=== PATIENT | female | born 1970 | race Caucasian/White ===

== ENCOUNTER 2016-08-21 13:30 | Outpatient (CLI) | payer OTHER | END 2016-08-21 13:31 | disposition home or self-care (01) | DX: F31.81 Bipolar II disorder (principal) ==

== ENCOUNTER 2016-12-24 10:51 | Outpatient (CLI) | payer OTHER | END 2016-12-24 10:52 | disposition home or self-care (01) | DX: N39.0 Urinary tract infection, site not specified (principal) ==

== ENCOUNTER 2017-01-08 08:00 | Outpatient (CLI) | payer OTHER | END 2017-01-08 08:01 | disposition home or self-care (01) | LOC: LAB.R 08:00 | PROVIDERS: ATTEND Family Medicine | DX: N39.0 Urinary tract infection, site not specified (principal) | CPT/HCPCS: 87077; 87086 ==

== ENCOUNTER 2017-01-14 11:58 | Outpatient (CLI) | payer OTHER | END 2017-01-14 11:59 | disposition home or self-care (01) | LOC: LAB 11:58 | PROVIDERS: ATTEND Nurse Practitioner Psychiatric/Mental Health | DX: F39 Unspecified mood [affective] disorder (principal) | CPT/HCPCS: 36415; 80178 ==

== ENCOUNTER 2017-01-15 12:10 | Outpatient (CLI) | payer OTHER | END 2017-01-15 12:11 | disposition home or self-care (01) | DX: N39.0 Urinary tract infection, site not specified (principal) ==

== ENCOUNTER 2017-03-18 01:19 | Emergency (ER) | payer OTHER ==
[2017-03-18] MEDS ORDERED: SODIUM CHLORIDE 0.9% 1,000 ML IV ONE (01:37)
[2017-03-18] MEDS ORDERED: METOCLOPRAMIDE 10 MG/2 ML VIAL IVP STA (01:37)
[2017-03-18] MEDS ORDERED: SODIUM CHLORIDE FLUSH 0.9% 10 ML SYRINGE IVP ONE (01:48)
[2017-03-18] MEDS ORDERED: METOCLOPRAMIDE 10 MG/2 ML VIAL ONE (01:48)
--- NOTE | 2017-03-18 02:27 | XRAY Preliminary Report ---
Exam: XR Abdomen 2 View IMPRESSION: Large stool burden. [facility] SITE ID: [id number]
--- NOTE | 2017-03-18 02:30 | XRAY Report ---
EXAM: ABDOMEN RADIOGRAPHY EXAM DATE: 03/18/2017 02:07 AM. CLINICAL HISTORY: Vomiting, constipation, prior abdominal surgeries. COMPARISON: 01/15/2017, CT 06/07/2014. TECHNIQUE: 2 views. FINDINGS: Lung Bases: Unremarkable. Bowel Gas Pattern: Nonobstructive with large stool burden. Other: No gross free air seen. Previous cholecystectomy. IMPRESSION: Large stool burden. [facility] Referring Provider Line: [phone] SITE ID: [id number]
--- NOTE | 2017-03-18 02:48 | ED Physician Documentation ---
PD HPI NVD - Stated complaint Stated Complaint: VOMITING - Chief complaint Chief Complaint: Abd Pain - History obtained from History obtained from: Patient, Family - History of Present Illness Timing - onset: Chronic Timing - details: Gradual onset, Still present Contributing factors: Sick contact. No: Bad food, Recent antibiotics Similar symptoms before: Work up / diagnostics, Treatment, Follow up Recently seen: Not recently seen - Additonal information Additional information: Patient is a 46 year old female with chronic abdominal problems including ibs with consitpation. Patient states that she has been vomiting for the last 12 hours. patient's reports that she normally has a bowel movement once every few days. Patient states that she had a small bowel movement yesterday. patient's had been sick with a viral syndrome earlier this week. Review of Systems Constitutional: denies: Fever, Chills Eyes: denies: Loss of vision, Decreased vision Ears: denies: Ear pain, Drainage/discharge Nose: denies: Rhinorrhea / runny nose, Congestion Throat: denies: Sore throat Cardiac: denies: Palpitations GI: reports: Abdominal Pain, Nausea, Vomiting, Constipation : denies: Dysuria, Frequency, Hesitancy Musculoskeletal: denies: Neck pain, Back pain Neurologic: denies: Generalized weakness, Focal weakness Immunocompromised: denies: Immunocompromised PD PAST MEDICAL HISTORY - Past Medical History Cardiovascular: High cholesterol, Pulmonary embolism Respiratory: Other Neuro: None Endocrine/Autoimmune: HyPOthyroidism GI: Chronic constipation, Other : Other HEENT: None Psych: Depression, Anxiety, Bipolar disorder Musculoskeletal: Osteoarthritis, Fibromyalgia, Chronic back pain Derm: None Other Past Medical History: Chronic vomiting - Past Surgical History Past Surgical History: Yes General: Colonoscopy - Present Medications Home Medications: Ambulatory Orders Medication Instructions Recorded Confirmed Amitriptyline HCl 150 mg PO HS 03/10/13 03/18/17 Lamotrigine [Lamictal Xr] 200 mg PO DAILY 03/10/13 03/18/17 Levothyroxine [Synthroid] 88 mcg PO QDAC 03/10/13 03/18/17 [place] Carbonate 600 mg PO HS 03/10/13 03/18/17 Morphine ER [Ms Contin] 15 mg PO Q12H 03/10/13 03/18/17 Tizanidine HCl [Zanaflex] 4 mg PO BID 03/10/13 03/18/17 Rivaroxaban [Xarelto] 20 mg PO DAILY 06/21/13 03/18/17 Albuterol [Ventolin Hfa] 1 puffs INH DAILY PRN 10/04/13 03/18/17 Fluticasone/Salmeterol 100/50 1 puffs INH DAILY 10/04/13 03/18/17 [Advair 100 Mcg/50 Mcg] Hyoscyamine [Levsin] 0.125 mg PO DAILY PRN 04/10/15 03/18/17 Lubiprostone [Amitiza] 24 mcg PO DAILY 04/10/15 03/18/17 Omeprazole 20 mg PO DAILY 04/10/15 03/18/17 QUEtiapine [SEROquel] 200 mg PO DAILY 04/10/15 03/18/17 [place] 150 mg PO DAILY 05/13/16 03/18/17 Metoclopramide [Reglan] 10 mg PO Q6H #14 tablet 03/18/17 - Allergies Allergies/Adverse Reactions: Allergies Allergy/AdvReac Type Severity Reaction Status Date / Time Penicillins Allergy Severe Hives Verified 03/18/17 01:31 bromocriptine mesylate * AdvReac Intermediate syncope Verified 03/18/17 01:31 [From Parlodel] lidocaine AdvReac Intermediate vomitting Verified 03/18/17 01:31 metronidazole [From Flagyl] AdvReac Intermediate vomitting Verified 03/18/17 01: 31 Metronidazole HCl * AdvReac Intermediate vomitting Verified 03/18/17 01:31 [From Flagyl] - Social History Does the pt smoke?: No Smoking Status: Never smoker Does the pt drink ETOH?: No Does the pt have substance abuse?: No - Immunizations Immunizations are current?: Yes PD ED PE NORMAL - Vitals Vital signs reviewed: Yes - General General: Alert and oriented X 3, No acute distress - HEENT HEENT: Atraumatic, PERRL - Neck Neck: Supple, no meningeal sign, No JVD - Cardiac Cardiac: RRR, No murmur - Respiratory Respiratory: No respiratory distress - Abdomen Abdomen: Soft, Non distended - Derm Derm: Normal color, Warm and dry, No rash - Extremities Extremities: No deformity, No tenderness to palpate, No edema - Neuro Neuro: Alert and oriented X 3, 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 No: Rebound, Guarding Results - Vitals Vitals: Vital Signs - 24 hr 03/18/17 01:24 Temperature 37.1 C Heart Rate 79 Respiratory 14 Rate Blood Pressure 99/58 L O2 Saturation 98 Oxygen O2 Source Room air - Rads (name of study) abdomen Radiology: Final report received (large stool burden) PD MEDICAL DECISION MAKING - ED course Complexity details: reviewed old records, reviewed results, re-evaluated patient , considered differential, d/w patient, d/w family ED course: Patient was seen and examined at bedside. Patient was treated with fluids, and reglan. Imaging was ordered and showed constipation but no obstruction. Patient had no episodes of vomiting while in the emergency department. Patient required no further work up and was stable for discharge with outpatient follow up. Departure - Departure Disposition: 01 Home, Self Care Clinical Impression: Vomiting Condition: Good Instructions: ED Nausea Vomiting Follow-Up: Sade Larose DO [Primary Care Provider] - Within 1 week Prescriptions: Metoclopramide [Reglan] 10 mg PO Q6H #14 tablet Comments: Your diagnostics showed constipation but no obstruction. You could be fighting a viral gastroenteritis. It is important to stay well hydrated with fluids. You can take the reglan, zofran or phenagran for nausea. You should follow up wiht your pmd if your symptoms persist. You should return to the emergency department at any time for new, worsening or uncontrollable symptoms.
[2017-03-18 03:07] VITALS: BP 98/67
== END 2017-03-18 03:05 | disposition home or self-care (01) ==
LOC: ED 01:19
DX: R11.2 Nausea with vomiting, unspecified (principal); K58.1 Irritable bowel syndrome with constipation; E78.00 Pure hypercholesterolemia, unspecified; Z86.711 Personal history of pulmonary embolism
CPT/HCPCS: 74020; 96361; 96374; 99283; 99284

== ENCOUNTER 2017-04-20 08:00 | Outpatient (CLI) | payer OTHER | END 2017-04-20 08:01 | disposition home or self-care (01) | LOC: LAB.WCP 08:00 | PROVIDERS: ATTEND Family Medicine | DX: R30.0 Dysuria (principal) | CPT/HCPCS: 87086 ==

== ENCOUNTER 2017-07-15 13:15 | Outpatient (CLI) | payer OTHER | END 2017-07-15 13:16 | LOC: LAB.WCP 13:15 | PROVIDERS: ATTEND Family Medicine | DX: N39.0 Urinary tract infection, site not specified (principal) | CPT/HCPCS: 87086 ==

== ENCOUNTER 2018-01-19 10:32 | Outpatient (CLI) | payer OTHER ==
--- NOTE | 2018-01-19 12:15 | Mammography Report ---
BILATERAL MAMMOGRAPHY AND LEFT BREAST ULTRASOUND: 01/19/2018 HISTORY: Left breast pain. TECHNIQUE: Bilateral digital CC and MLO projections with additional magnification views of the left breast. COMPARISON: 09/24/2015, 09/11/2015, 11/11/2011, 10/21/2010 and 09/23/2009. FINDINGS: There are scattered fibroglandular densities. No dominant mass, architectural distortion, skin thickening. On the right, no suspicious calcifications. On the left, there are linear calcifications in the middle third retroareolar breast,, questionably increased in number compared to prior studies. While these are most likely benign, given the history of left breast pain, repeat six month left breast mammogram with magnification views is suggested. LEFT BREAST ULTRASOUND: TECHNIQUE: Real-time scanning of the left breast in the periareolar region in the areas of Pain. FINDINGS: No cystic or solid mass, abnormal fluid collection, dilated duct, or other finding. IMPRESSION: 1. NEGATIVE RIGHT BREAST. BI-RADS CATEGORY 1 - NEGATIVE. 2. PROBABLY BENIGN FINDINGS LEFT BREAST. BI-RADS CATEGORY 3 - PROBABLE BENIGN FINDING. SHORT-TERM FOLLOW UP. 3. SUGGEST FOLLOWUP UNILATERAL LEFT BREAST MAMMOGRAM IN 6 MONTHS WITH MAGNIFICATION VIEWS. STANDARD QUALIFYING STATEMENTS: 1. This examination was reviewed with the aid of Computer-Aided Detection (CAD) . 2. A negative or benign imaging report should not delay biopsy if clinically suspicious findings are present. Consider surgical consultation if warranted. More than 5 % of cancers are not identified by imaging. 3. Dense breasts may obscure an underlying neoplasm. TD: 01/19/2018 11:49 ESME
== END 2018-01-19 10:33 | disposition home or self-care (01) ==
LOC: DI 10:32
PROVIDERS: ATTEND Family Medicine
DX: N64.4 Mastodynia (principal)
CPT/HCPCS: 76642; 77066

== ENCOUNTER 2018-02-18 11:35 | Outpatient (CLI) | payer OTHER ==
[2018-02-18 12:30] LABS: BILIRUBIN,TOTAL 0.5 mg/dL (0.2-1.0); CALCIUM 9.9 mg/dL (8.5-10.3); CREATININE 0.9 mg/dL (0.4-1.0); PHOSPHORUS 3.4 mg/dL (2.5-4.6)
[2018-02-18 14:17] LABS: LITHIUM 0.96 mmol/L
== END 2018-02-18 11:36 | disposition home or self-care (01) ==
LOC: LAB 11:35
PROVIDERS: ATTEND Nurse Practitioner Psychiatric/Mental Health
DX: F41.1 Generalized anxiety disorder (principal); F41.8 Other specified anxiety disorders; F10.10 Alcohol abuse, uncomplicated; F39 Unspecified mood [affective] disorder
CPT/HCPCS: 36415; 80053; 80178; 84100

== ENCOUNTER 2018-03-29 17:25 | Outpatient (CLI) | payer OTHER ==
--- NOTE | 2018-03-30 03:34 | XRAY Report ---
Procedure Date: 03/29/2018 Accession Number: [id number] / [id number] Procedure: XR - Hip w/Pelvis 2-3V LT CPT Code: FULL RESULT: EXAM: LEFT HIP AND PELVIS RADIOGRAPHY EXAM DATE: 03/29/2018 06:11 PM. HISTORY: HIP PAIN,LEFT THIGH PAIN,LEFT. COMPARISONS: None. TECHNIQUE: 1 view of the pelvis and 1 view of the hip. FINDINGS: Bones: Normal. No fracture or bone lesion. Joints: The bilateral hip, pubis symphysis, and sacroiliac joints are preserved. Soft Tissues: Normal. No soft tissue swelling. IMPRESSION: Normal pelvis and hip radiography. [facility]
== END 2018-03-29 17:26 | disposition home or self-care (01) ==
LOC: DI 17:25
PROVIDERS: ATTEND Family Medicine
DX: M25.552 Pain in left hip (principal); M79.652 Pain in left thigh; Z86.711 Personal history of pulmonary embolism
CPT/HCPCS: 36415; 85379

== ENCOUNTER 2018-03-30 21:52 | Outpatient (CLI) | payer OTHER ==
--- NOTE | 2018-03-30 23:14 | Ultrasound Report ---
Procedure Date: 03/30/2018 Accession Number: [id number] / [id number] Procedure: US - Duplex Ext Veins Left CPT Code: FULL RESULT: EXAM: LEFT LOWER EXTREMITY VENOUS ULTRASOUND EXAM DATE: 03/30/2018 10:28 PM. CLINICAL HISTORY: THIGH PAIN, LEFT; HX OF PE. COMPARISON: None. TECHNIQUE: Real-time sonographic vascular imaging was performed by the ring stamper through the lower extremity utilizing both color-flow and Doppler spectral analysis. Multiple environmental marketing representative static images were saved for review. FINDINGS: Common Femoral Vein (CFV): Normal. CFV-GSV Junction: Normal. Profunda Femoral Vein (PFV): Normal. Femoral Vein (FV) Prox: Normal. Femoral Vein (FV) Mid: Normal. Femoral Vein (FV) Dist: Normal. Popliteal Vein: Normal. Posterior Tibial Veins: Normal. Peroneal Veins: Normal. Other: None. IMPRESSION: No evidence for deep venous thrombosis. Results called to Libertad Granger PA-C on 03/30/2018 at 11:10 PM. [facility]
== END 2018-03-30 21:53 | disposition home or self-care (01) ==
LOC: DI 21:52
PROVIDERS: ATTEND Family Medicine
DX: M79.652 Pain in left thigh (principal); Z86.711 Personal history of pulmonary embolism

== ENCOUNTER 2018-09-12 15:16 | Outpatient (CLI) | payer OTHER ==
[2018-09-12 16:33] LABS: ALBUMIN 4.2 g/dL (3.2-5.5); CALCIUM 9.8 mg/dL (8.5-10.3); CREATININE 0.8 mg/dL (0.4-1.0); PHOSPHORUS 3.6 mg/dL (2.5-4.6)
[2018-09-12 17:25] LABS: LITHIUM 0.93 mmol/L
== END 2018-09-12 15:17 | disposition home or self-care (01) ==
LOC: LAB 15:16
PROVIDERS: ATTEND Nurse Practitioner Psychiatric/Mental Health
DX: F39 Unspecified mood [affective] disorder (principal)
CPT/HCPCS: 36415; 80069; 80178

== ENCOUNTER 2018-09-26 14:54 | Emergency (ER) | payer OTHER ==
[2018-09-26 16:32] LABS: BASOPHILS # (AUTO) 0.1 10^3/uL (0.0-0.1); BASOPHILS % (AUTO) 0.7 %; EOSINOPHILS # (AUTO) 0.1 10^3/uL (0.0-0.7); EOSINOPHILS % (AUTO) 1.2 %; HGB - HEMOGLOBIN 12.3 g/dL (12.0-16.0); LYMPHOCYTES # (AUTO) 2.7 10^3/uL (1.5-3.5); LYMPHOCYTES % (AUTO) 32.4 %; MEAN CORPUSCULAR HEMOGLOBIN 31.3 pg (27.0-31.0); MEAN CORPUSCULAR HGB CONC 32.9 g/dL (32.0-36.0); MEAN CORPUSCULAR VOLUME 94.9 fL (81.0-99.0); MEAN PLATELET VOLUME 6.6 fL (7.9-10.8); MONOCYTES # (AUTO) 0.4 10^3/uL (0.0-1.0); MONOCYTES % (AUTO) 4.6 %; NEUTROPHILS # (AUTO) 5.1 10^3/uL (1.5-6.6); NEUTROPHILS % (AUTO) 61.1 %; PLT - PLATELET COUNT 372 10^3/uL (130-450); RED BLOOD COUNT 3.92 10^6/uL (4.20-5.40); RED CELL DISTRIBUTION WIDTH 12.7 % (12.0-15.0); WHITE BLOOD COUNT 8.3 x10^3/uL (4.8-10.8)
[2018-09-26 16:44] LABS: ALBUMIN 4.1 g/dL (3.2-5.5); ALBUMIN/GLOBULIN RATIO 1.1 (1.0-2.2); BILIRUBIN,TOTAL 0.5 mg/dL (0.2-1.0); CALCIUM 9.5 mg/dL (8.5-10.3); CREATININE 0.8 mg/dL (0.4-1.0); MAGNESIUM 2.2 mg/dL (1.7-2.8); TOTAL PROTEIN 7.9 g/dL (6.7-8.2)
[2018-09-26] MEDS ORDERED: KETOROLAC 60 MG/2 ML VIAL IM STA (18:33)
[2018-09-26] MEDS ORDERED: oxyCODONE 5 MG TABLET PO STA (18:33)
[2018-09-26] MEDS ORDERED: DEXAMETHASONE 10 MG/ML VIAL PO STA (18:33)
[2018-09-26] MEDS ORDERED: ACETAMINOPHEN 325 MG TABLET PO STA (18:33)
--- NOTE | 2018-09-26 18:36 | ED Physician Documentation ---
PD HPI LOWER EXT INJURY - Stated complaint Stated Complaint: LEG NUMBNESS - Chief complaint Chief Complaint: Ext Problem - History obtained from History obtained from: Patient - History of Present Illness PD HPI LOW EXT INJURY LOCATION: Right, Left, Thigh, Calf Type of injury: No: Fall, Twist Timing - onset: Yesterday Timing - details: Gradual onset (She had onset yesterday of a feeling of numbness and cold feeling in both medial thighs down to the anterior lower legs and a bit to the top of the foot on the left side. She did not notice any rash. There is no particular injury. She denied any back pain. She has had a history of blood clots remotely in the past but greater than 5 years ago and states this is not feel quite like that. She has not had any prior similar episodes. She denies any unusual foods. She denies any poorly cooked or recent fish. She has not had any recent change in medicines. She denies any recent fevers rash or cold symptoms.) Worsened by: Palpating (She says touching at the areas does cause a cold and burning feeling.). No: Moving Associated symptoms: Tingling (Somewhat of a tingling feeling on both legs but more feels like a coldness to the point of hurting as if she were holding her legs in ice water in those areas.). No: Weakness, Numbness, Swelling, Discolored Similar symptoms before: Has not had sx before Recently seen: Not recently seen Review of Systems Constitutional: denies: Fever, Chills, Myalgias Nose: denies: Rhinorrhea / runny nose, Congestion Throat: denies: Sore throat Respiratory: denies: Cough Skin: denies: Rash, Lesions PD PAST MEDICAL HISTORY - Past Medical History Past Medical History: Yes Cardiovascular: High cholesterol, Deep vein thrombosis, Pulmonary embolism Respiratory: Other Endocrine/Autoimmune: HyPOthyroidism GI: Chronic constipation, Other : Other HEENT: None Psych: Depression, Anxiety, Bipolar disorder Musculoskeletal: Osteoarthritis, Fibromyalgia, Chronic back pain Derm: None - Past Surgical History Past Surgical History: Yes General: Colonoscopy - Present Medications Home Medications: Ambulatory Orders Medication Instructions Recorded Confirmed Amitriptyline HCl 150 mg PO HS 03/10/13 09/26/18 Levothyroxine [Synthroid] 88 mcg PO QDAC 03/10/13 09/26/18 [employer] Carbonate 600 mg PO HS 03/10/13 09/26/18 Morphine ER [Ms Contin] 15 mg PO Q12H 03/10/13 09/26/18 Tizanidine HCl [Zanaflex] 4 mg PO BID 03/10/13 09/26/18 lamoTRIgine [Lamictal Xr] 200 mg PO DAILY 03/10/13 09/26/18 Albuterol [Ventolin Hfa] 1 puffs INH DAILY PRN 10/04/13 09/26/18 Fluticasone/Salmeterol 100/50 1 puffs INH DAILY 10/04/13 09/26/18 [Advair 100 Mcg/50 Mcg] Hyoscyamine [Levsin] 0.125 mg PO DAILY PRN 04/10/15 09/26/18 Lubiprostone [Amitiza] 24 mcg PO DAILY 04/10/15 09/26/18 Omeprazole 20 mg PO DAILY 04/10/15 09/26/18 QUEtiapine [SEROquel] 200 mg PO DAILY 04/10/15 09/26/18 [employer] 150 mg PO DAILY 05/13/16 09/26/18 Dexamethasone [Decadron] 4 mg PO DAILY #5 tablet 09/26/18 Naproxen 375 mg PO BID #20 tablet 09/26/18 Oxycodone HCl/Acetaminophen 1 each PO Q6H PRN #12 tablet 09/26/18 [Percocet 5-325 mg Tablet] - Allergies Allergies/Adverse Reactions: Allergies Allergy/AdvReac Type Severity Reaction Status Date / Time Penicillins Allergy Severe Hives Verified 03/18/17 01:31 bromocriptine mesylate * AdvReac Intermediate syncope Verified 03/18/17 01:31 [From Parlodel] lidocaine AdvReac Intermediate vomitting Verified 03/18/17 01:31 metronidazole [From Flagyl] AdvReac Intermediate vomitting Verified 03/18/17 01:31 Metronidazole HCl * AdvReac Intermediate vomitting Verified 09/26/18 15:01 [From Flagyl] Fish Containing Products AdvReac Emesis Verified 09/26/18 15:01 - Social History Does the pt smoke?: No Smoking Status: Never smoker Does the pt drink ETOH?: No Does the pt have substance abuse?: No - Immunizations Immunizations are current?: Yes PD ED PE NORMAL - Vitals Vital signs reviewed: Yes - General General: Alert and oriented X 3, Well developed/nourished - HEENT HEENT: Moist mucous membranes, Pharynx benign - Neck Neck: Supple, no meningeal sign, No adenopathy - Cardiac Cardiac: RRR, No murmur - Respiratory Respiratory: No respiratory distress, Clear bilaterally - Abdomen Abdomen: Soft, Non tender - Back Back: No CVA TTP, No spinal TTP - Derm Derm: Normal color, Warm and dry - Extremities Extremities: No tenderness to palpate, Normal ROM s pain - Neuro Neuro: Alert and oriented X 3, No motor deficit, Normal speech - Psych Psych: No: Normal affect (slightly anxious) Results - Vitals Vitals: Vital Signs - 24 hr 09/26/18 09/26/18 14:59 19:04 Temperature 36 C L 36.5 C Heart Rate 86 74 Respiratory 20 17 Rate Blood Pressure 138/75 H 125/75 O2 Saturation 100 100 Oxygen O2 Source Room air - Labs Labs: Laboratory Tests 09/26/18 09/26/18 09/26/18 16:27 16:27 16:27 WBC 8.3 RBC 3.92 L Hgb 12.3 Hct 37.2 MCV 94.9 MCH 31.3 H MCHC 32.9 RDW 12.7 Plt Count 372 MPV 6.6 L Neut # (Auto) 5.1 Lymph # (Auto) 2.7 [place] # (Auto) 0.4 Eos # (Auto) 0.1 Baso # (Auto) 0.1 Absolute Nucleated RBC 0.01 Nucleated RBC % 0.1 ESR 48 H D-Dimer Sodium 136 Potassium 4.0 Chloride 104 Carbon Dioxide 24 Anion Gap 8.0 BUN 14 Creatinine 0.8 Estimated GFR (MDRD) 77 L Glucose 84 Calcium 9.5 Magnesium 2.2 Total Bilirubin 0.5 AST 18 ALT 16 Alkaline Phosphatase 65 Total Creatine Kinase 55 Total Protein 7.9 Albumin 4.1 Globulin 3.8 Albumin/Globulin Ratio 1.1 Lipase 35 09/26/18 16:27 WBC RBC Hgb Hct MCV MCH MCHC RDW Plt Count MPV Neut # (Auto) Lymph # (Auto) [place] # (Auto) Eos # (Auto) Baso # (Auto) Absolute Nucleated RBC Nucleated RBC % ESR D-Dimer < 200.0 L Sodium Potassium Chloride Carbon Dioxide Anion Gap BUN Creatinine Estimated GFR (MDRD) Glucose Calcium Magnesium Total Bilirubin AST ALT Alkaline Phosphatase Total Creatine Kinase Total Protein Albumin Globulin Albumin/Globulin Ratio Lipase Departure - Departure Disposition: 01 Home, Self Care Clinical Impression: Paresthesia of both lower extremities Condition: Stable Record reviewed to determine appropriate education?: Yes Instructions: ED Paraesthesias Follow-Up: Sade Larose DO [Primary Care Provider] - Prescriptions: Dexamethasone [Decadron] 4 mg PO DAILY #5 tablet Naproxen 375 mg PO BID #20 tablet Oxycodone HCl/Acetaminophen [Percocet 5-325 mg Tablet] 1 each PO Q6H PRN #12 tablet PRN Reason: pain Comments: Your symptoms sound like a nerve irritation add a particular nerve level. You do not have back pain so I do not know that it is a disc process per se. 1 of your inflammatory markers blood test is elevated so consider inflammation of the nerve root. At this point I would suggest some anti-inflammatories both nonsteroidal and steroidal. Add some pain medicine if needed short-term. Continue your usual medications. Follow-up with your primary care in the next few days to see how much better you have gotten and to figure other treatments if you are not improved enough. Return if worsening pain, weakness in the legs, fevers, rash, other concerns. Discharge Date/Time: 09/26/18 19:06
--- NOTE | 2018-09-26 18:59 | Ultrasound Report ---
Reason: calf pains and history of DVTs Procedure Date: 09/26/2018 Accession Number: [id number] / [id number] Procedure: US - Duplex Ext Veins Bilateral CPT Code: FULL RESULT: EXAM: BILATERAL LOWER EXTREMITY VENOUS ULTRASOUND EXAM DATE: 09/26/2018 06:06 PM. CLINICAL HISTORY: Calf pains and history of DVTs. COMPARISON: DUPLEX EXT VEINS LEFT 03/30/2018 10:12 PM. TECHNIQUE: Real-time sonographic vascular imaging was performed by the car worker helper through the lower extremities utilizing both color-flow and Doppler spectral analysis. Multiple client services representative static images were saved for review. FINDINGS: Right: Common Femoral Vein (CFV): Normal. CFV-GSV Junction: Normal. Profunda Femoral Vein (PFV): Normal. Femoral Vein (FV) Prox: Normal. Femoral Vein (FV) Mid: Normal. Femoral Vein (FV) Dist: Normal. Popliteal Vein: Normal. Posterior Tibial Veins: Normal. Peroneal Veins: Normal. Left: Common Femoral Vein (CFV): Normal. CFV-GSV Junction: Normal. Profunda Femoral Vein (PFV): Normal. Femoral Vein (FV) Prox: Normal. Femoral Vein (FV) Mid: Normal. Femoral Vein (FV) Dist: Normal. Popliteal Vein: Normal. Posterior Tibial Veins: Normal. Peroneal Veins: Normal. Other: None. IMPRESSION: No evidence for deep venous thrombosis bilaterally. [facility] The call report notification system was initiated by Dr. Ramona Doherty at 06:57 PM on 09/26/2018.
[2018-09-26 19:04] VITALS: BP 125/75
== END 2018-09-26 19:06 | disposition home or self-care (01) ==
LOC: ED 14:54
DX: R20.2 Paresthesia of skin (principal); R20.0 Anesthesia of skin; M79.605 Pain in left leg; M79.604 Pain in right leg; Z86.718 Personal history of other venous thrombosis and embolism
CPT/HCPCS: 36415; 80053; 82550; 83690; 83735; 85025; 85379; 85651; 93970; 96372; 99283; A9270

== ENCOUNTER 2018-10-06 14:46 | Outpatient (CLI) | payer OTHER ==
[2018-10-06 16:05] LABS: BILIRUBIN,URINE NEGATIVE (NEGATIVE); GLUCOSE, URINE (UA) NEGATIVE (NEGATIVE); KETONES,URINE (UA) NEGATIVE (NEGATIVE); LEUKOCYTE ESTERASE, URINE TRACE (NEGATIVE); NITRITE,URINE NEGATIVE (NEGATIVE); OCCULT BLOOD,URINE NEGATIVE (NEGATIVE); PROTEIN,URINE NEGATIVE (NEGATIVE); UROBILINOGEN,URINE 1 (NORMAL) E.U./dL (NORMAL)
[2018-10-06 16:09] LABS: CLARITY,URINE CLEAR (CLEAR)
[2018-10-06 16:37] LABS: BACTERIA,URINE Many /HPF (None Seen); RBC,URINE 0-5 /HPF (0-5); SQUAMOUS EPITHELIAL CELL,UR MANY Squamous (<= Few)
== END 2018-10-06 14:47 | disposition home or self-care (01) ==
LOC: LAB 14:46
PROVIDERS: ATTEND Family Medicine
DX: N30.10 Interstitial cystitis (chronic) without hematuria (principal)
CPT/HCPCS: 81001; 87086

== ENCOUNTER 2018-11-07 11:50 | Outpatient (CLI) | payer OTHER ==
--- NOTE | 2018-11-08 10:38 | Nuclear Medicine Report ---
Reason: BONE PAIN Procedure Date: 11/07/2018 Accession Number: [id number] / [id number] Procedure: NM - Bone Whole Body CPT Code: FULL RESULT: EXAM: BONE SCAN EXAM DATE: 11/07/2018 04:06 PM. CLINICAL HISTORY: Diffuse bone pain. No history of cancer. COMPARISON: None available. TECHNIQUE: Following the intravenous administration of 32.5 mCi of technetium 99m MDP and an appropriate delay, a whole-body scan was performed in anterior and posterior projections. Site-specific spot views of the region of interest were obtained in various projections. FINDINGS: Exam Quality: Normal overall osseous radiotracer uptake. Physiological tracer uptake in bilateral collecting systems. Skull: No focal uptake. Thorax: No focal lesions in ribs or sternum. Pelvis: No focal lesions. Spine: Mild degenerative endplate uptake in the mid to lower thoracic spine. Mild degenerative facet uptake in the mid cervical spine. IMPRESSION: 1. Mild degenerative endplate uptake in the mid to lower thoracic spine and mild degenerative facet uptake in the mid cervical spine. 2. No other significant focal abnormality appreciated. [facility]
== END 2018-11-07 11:51 | disposition home or self-care (01) ==
LOC: DI 11:50
PROVIDERS: ATTEND Family Medicine
DX: M47.9 Spondylosis, unspecified (principal); M51.34 Other intervertebral disc degeneration, thoracic region
CPT/HCPCS: 78306

== ENCOUNTER 2018-11-11 10:51 | Outpatient (CLI) | payer OTHER ==
--- NOTE | 2018-11-11 13:51 | Mammography Report ---
Reason: LEFT BREAST CALCS Procedure Date: 11/11/2018 Accession Number: [id number] / [id number] Procedure: ANTWON - Diagnostic Dig Bilat CPT Code: FULL RESULT: EXAM: Diagnostic Dig Bilat DATE: 11/11/2018 12:44 PM CLINICAL HISTORY: Diagnostic examination. History of early menses. Follow-up of left breast calcifications. TECHNIQUE: Bilateral CC and MLO images as well as left ML and left spot magnified ML and left spot magnified CC images are obtained. COMPARISON: 01/19/2018 3 10/21/2010. FINDINGS: The breasts demonstrate heterogeneously dense fibroglandular parenchyma bilaterally. Previously seen central coarse and linear group of calcifications in the left breast, exemplified on MLO image 38 and CC image 22 appears similar to before, perhaps early vascular calcifications and probably benign. No suspicious calcifications, architectural distortion or mass are identified. IMPRESSION: Probable benign findings RECOMMENDATION: Recommend diagnostic left breast mammogram in 6 months. Annual screening mammography of the right breast. BIRADS CATEGORY 3 STANDARD QUALIFYING STATEMENTS: 1. This examination was not reviewed with the aid of Computer-Aided Detection (CAD). 2. A negative or benign imaging report should not delay biopsy if clinically suspicious findings are present. Consider surgical consultation if warrented. More than 5% of cancers are not identified by imaging. 3. Dense breasts may obscure an underlying neoplasm. 4. This examination was reviewed with the aid of 3D imaging (tomography).
== END 2018-11-11 10:52 | disposition home or self-care (01) ==
LOC: DI 10:51
PROVIDERS: ATTEND Family Medicine
DX: N64.4 Mastodynia (principal); R92.8 Other abnormal and inconclusive findings on diagnostic imaging of breast
CPT/HCPCS: 77062; 77066

== ENCOUNTER 2018-11-24 11:02 | Outpatient (CLI) | payer OTHER ==
[2018-11-24 19:21] LABS: HGB - HEMOGLOBIN 12.2 g/dL (12.0-16.0); MEAN CORPUSCULAR HEMOGLOBIN 31.3 pg (27.0-31.0); MEAN CORPUSCULAR HGB CONC 32.6 g/dL (32.0-36.0); MEAN CORPUSCULAR VOLUME 95.9 fL (81.0-99.0); MEAN PLATELET VOLUME 6.9 fL (7.9-10.8); RED BLOOD COUNT 3.91 10^6/uL (4.20-5.40); RED CELL DISTRIBUTION WIDTH 13.2 % (12.0-15.0); WHITE BLOOD COUNT 8.4 x10^3/uL (4.8-10.8)
[2018-11-24 20:04] LABS: RHEUMATOID FACTOR NEGATIVE (Negative)
[2018-11-24 21:02] LABS: CRP - C-REACTIVE PROTEIN < 1.0 mg/dL (0-1.0); URIC ACID 6.3 mg/dL (2.6-7.2)
== END 2018-11-24 11:03 | disposition home or self-care (01) ==
LOC: LAB.WCP 11:02
PROVIDERS: ATTEND Family Medicine
DX: M25.50 Pain in unspecified joint (principal)
CPT/HCPCS: 36415; 84550; 85027; 85651; 86140; 86200; 86430

== ENCOUNTER 2019-06-12 12:20 | Outpatient (CLI) | payer OTHER ==
--- NOTE | 2019-06-12 13:36 | Mammography Report ---
Reason: LEFT BREAST NODULE - 6 MO F/U ABN MAMMO Procedure Date: 06/12/2019 Accession Number: [id number] / [id number] Procedure: ANTWON - Diagnostic Dig LT CPT Code: FULL RESULT: EXAM: Diagnostic Dig LT DATE: 06/12/2019 1:25 PM CLINICAL HISTORY: Follow-up calcifications. TECHNIQUE: (L) - Left CC and MLO views were obtained. COMPARISON: 11/11/2018, 01/19/2018, 09/24/2015, 09/11/2015, 11/11/2011, 10/21/2010, 10/03/2009, 09/16/2009, 06/18/2008 PARENCHYMAL PATTERN: (D) - The breasts demonstrate heterogeneously dense fibroglandular parenchyma . FINDINGS: No significant interval change. Left breast calcifications appear stable. No suspicious masses, skin thickening or architectural distortion. IMPRESSION: Benign findings. BI-RADS category 2. Left breast RECOMMENDATION: (ANNUAL) - Recommend routine annual screening mammography. Return to routine screening October 2019 BI-RADS CATEGORY: (2) - Benign Findings. STANDARD QUALIFYING STATEMENTS: 1. This examination was not reviewed with the aid of Computer-Aided Detection (CAD). 2. A negative or benign imaging report should not preclude biopsy if clinically suspicious findings are present. 3. Dense breasts may obscure an underlying neoplasm. 4. This examination was reviewed without the aid of 3D breast imaging (tomosynthesis).
== END 2019-06-12 12:21 | disposition home or self-care (01) ==
LOC: DI 12:20
PROVIDERS: ATTEND Family Medicine
DX: R92.1 Mammographic calcification found on diagnostic imaging of breast (principal)

== ENCOUNTER 2019-08-15 12:11 | Outpatient (CLI) | payer OTHER ==
[2019-08-15] MEDS ORDERED: GADOBUTROL 10 MMOL/10 ML VIAL ONE (12:35)
[2019-08-15] MEDS ORDERED: GADOBUTROL 10 MMOL/10 ML VIAL IVP ONE (13:38)
--- NOTE | 2019-08-15 15:23 | MRI Report ---
Reason: VERTIGO Procedure Date: 08/15/2019 Accession Number: [id number] / [id number] Procedure: MRI - Brain W/WO CPT Code: Final Report FULL RESULT: EXAM: MRI BRAIN WITHOUT AND WITH CONTRAST EXAM DATE: 08/15/2019 02:01 PM. CLINICAL HISTORY: VERTIGO. COMPARISON: BRAIN W/O 05/17/2015 10:05 AM. TECHNIQUE: Multiplanar, multisequence T1-weighted and fluid-sensitive MR sequences of the brain were performed before and after administration of intravenous contrast. Sequences optimized for routine evaluation. Other: None. IV Contrast: 9.5 mL Gadavist. FINDINGS: The diffusion-weighted images are normal. There is no evidence of acute or subacute cerebral infarction. The T2 axial FLAIR images are normal. The T2* sequence is normal. There is no evidence of subacute or chronic hemorrhage. The corpus callosum is of normal size and configuration. The pituitary and sella are normal. The craniocervical junction is normal. The bilateral parotid spaces exhibit normal signal intensity. The optic nerves demonstrate symmetric signal intensity and size. There is normal enhancement within the deep venous sinuses. IMPRESSION: 1. There is no evidence of acute or subacute cerebral infarction. 2. There is no significant white matter disease. 3. There is no evidence of brain mass.
--- NOTE | 2019-08-15 15:24 | MRI Report ---
Reason: VERTIGO Procedure Date: 08/15/2019 Accession Number: [id number] / [id number] Procedure: MRI - Neck Soft Tissue W/WO CPT Code: Final Report FULL RESULT: EXAM: MRI SOFT TISSUE NECK WITHOUT AND WITH CONTRAST EXAM DATE: 08/15/2019 02:02 PM. CLINICAL HISTORY: Vertigo. Migraines. COMPARISON: BRAIN W/WO 08/15/2019 12:39 PM. BONE SCAN 11/07/2018 3:21 PM. TECHNIQUE: Multiplanar, multisequence T1-weighted and fluid-sensitive MR sequences of the neck soft tissues were performed without and with contrast. Other: None. IV Contrast: 9.5 mL Gadavist. FINDINGS: Skull Base: Visualized intracranial contents and orbits are unremarkable. The skull base is intact. The visualized sinuses are clear. Pharynx and Oral Cavity: The pharyngeal mucosa is unremarkable. The manager stars spaces and pterygopalatine fossa are unremarkable. The infratemporal fossa, parapharyngeal spaces, and retropharyngeal space are unremarkable. The base of the tongue is symmetric. No mass lesion. The floor of the mouth is symmetric and unremarkable. The airway is patent. Larynx: The larynx and supraglottic airway are patent without mass lesion. The vocal cords are symmetric. The visualized trachea is unremarkable. Parotid and Submandibular Glands: Symmetric and unremarkable. Lymph Nodes and Soft Tissues: No enlarged cervical, supraclavicular fossa, or visualized superior mediastinal lymph nodes. No masses or swelling. Vasculature: Intact. Bones: Moderate degenerative changes seen in the TMJ. Erosion of the mandibular condyles is seen. Diffuse decreased T1 signal is seen through the mandibular condyle to the angle. Left-sided degenerative facet changes seen at C3-C4 and C4-C5. No abnormal bone marrow edema or enhancement is seen. Other: The upper chest and thoracic inlet are unremarkable. The thyroid is unremarkable. IMPRESSION: 1. No cervical mass or adenopathy. No abnormal fascial plane inflammation or fluid collection is seen. 2. Degenerative change at the TMJ bilaterally. Erosion and sclerosis of the mandibular condyles is seen. Left-sided degenerative facet changes seen at C3-C4 and C4-C5. Sclerosis of left C4 facet process is seen. RADIA
== END 2019-08-15 12:12 | disposition home or self-care (01) ==
LOC: DI 12:11
PROVIDERS: ATTEND Otolaryngology
DX: R42 Dizziness and giddiness (principal); M26.69 Other specified disorders of temporomandibular joint; M47.812 Spondylosis without myelopathy or radiculopathy, cervical region
CPT/HCPCS: 70543; 70553; A9585

== ENCOUNTER 2020-04-01 13:18 | Outpatient (CLI) | payer OTHER | END 2020-04-01 13:19 | disposition home or self-care (01) | LOC: DI 13:18 | DX: Z53.9 Procedure and treatment not carried out, unspecified reason (principal) ==

== ENCOUNTER 2020-05-23 15:51 | Outpatient (CLI) | payer OTHER ==
[2020-05-23] MEDS ORDERED: IOVERSOL 320 100 ML VIAL IVP ONE ×2 (16:12→17:45)
--- NOTE | 2020-05-23 17:34 | CT Report ---
PROCEDURE: ANGIO CHEST W INDICATIONS: SOB, HX PULM EMB, ASTHMA CONTRAST: IV CONTRAST: Optiray 320 ml: 80 PO CONTRAST: *NO PO CONTRAST TECHNIQUE: After the administration of intravenous contrast, 2 mm thick sections acquired from the pulmonary api sharee to the posterior costophrenic angles. 3-dimensional maximum intensity projection (MIP) coronal a nd sagittal reformats were then acquired through the thorax. For radiation dose reduction, the follow ing was used: automated exposure control, adjustment of mA and/or kV according to patient size. COMPARISON: CT chest angiogram 05/30/2015 FINDINGS: Image quality: Excellent. Pulmonary arteries: Pulmonary arteries are normal in size, and demonstrate no intraluminal filling d efects to suggest central pulmonary embolism. Evaluation of distal subsegmental branches is limited b y suboptimal contrast opacification. Lungs and pleura: There is minimal dependent atelectasis. No acute consolidation. No pleural effusion s or pneumothorax. Central and peripheral airways are patent. Mediastinum: Heart size is normal, without pericardial effusion. No mediastinal or hilar adenopathy . Thoracic aorta is normal in caliber and enhancement. Esophagus is normal in caliber, without hiat al hernia. Bones and chest wall: No suspicious bony lesions. Ribs and thoracic spine appear intact throughout. No axillary or supraclavicular adenopathy. Abdomen: Visualized upper abdomen demonstrates surgical absence of the gallbladder. IMPRESSION: 1. No evidence of central pulmonary embolism. 2. No evidence of pneumonia. Findings discussed with Dr. Larose on 05/23/2020 at 5:30 PM pacific time. Reviewed by: Bipin Perez MD on 05/23/2020 4:33 PM AKDT Approved by: Bipin Perez MD on 05/23/2020 4:33 PM AKDT Station ID: [id number]
== END 2020-05-23 15:52 | disposition home or self-care (01) ==
LOC: DI 15:51
PROVIDERS: ATTEND Family Medicine
DX: R06.02 Shortness of breath (principal); J45.909 Unspecified asthma, uncomplicated; Z86.711 Personal history of pulmonary embolism
CPT/HCPCS: 71275; Q9967

== ENCOUNTER 2020-06-10 10:43 | Outpatient (CLI) | payer OTHER ==
--- NOTE | 2020-06-11 15:49 | Ultrasound Report ---
LIMITED ULTRASOUND OF LEFT BREAST: 06/10/2020 CLINICAL: Focal left breast pain. Comparison is made to exams dated: 06/10/2020 mammogram, 06/12/2019 mammogram, 11/11/2018 mammogram, 01/19/2018 ultrasound, 01/19/2018 ultrasound, and 09/24/2015 mammogram - [facility]. Real-time ultrasound of the left breast 3 o'clock region was performed. Benites scale images of the re al-time examination were reviewed. No significant abnormalities were seen sonographically in the left breast. Specifically, no finding to explain the patient's pain. IMPRESSION: NEGATIVE There is no sonographic evidence of malignancy. Return to annual mammogram screening schedule is recommended. Findings and recommendations were conveyed to the patient at time of exam. This exam was interpreted at Station ID: [id number]. Electronically Signed By: Brianna herr/:06/10/2020 12:45:44 Ultrasound BI-RADS: 1 Negative BI-RADS CATEGORY: (1) - 1 RECOMMENDATION: (ANNUAL) - Recommend routine annual screening mammography. [id number] return to screening LATERALITY: (B)
--- NOTE | 2020-06-11 15:49 | Mammography Report ---
BILATERAL DIGITAL DIAGNOSTIC MAMMOGRAM 3D/2D: 06/10/2020 CLINICAL: Focal left breast pain. Comparison is made to exams dated: 06/12/2019 mammogram, 11/11/2018 mammogram, 01/19/2018 ultrasound, ultrasound, and 09/24/2015 mammogram - [facility]. There are scattered fibro glandular elements in both breasts. No significant masses, calcifications, or other findings are seen in either breast. Specifically, no finding to explain the patient's focal pain. IMPRESSION: INCOMPLETE: NEEDS ADDITIONAL IMAGING EVALUATION There is no abnormality seen in the left breast to correspond with the pain in the superior lateral q uadrant. Ultrasound for complete evaluation of this area is recommended. This was performed immediately follow ing this exam. This exam was interpreted at Station ID: [id number]. NOTE: For mammograms, a report in lay terms will be sent to the patient. Approximately 15% of breast malignancies will not be visualized mammographically. In the management of a palpable breast mass, a negative mammogram must not discourage biopsy of a clinically suspicious lesion. Electronically Signed By: Brianna herr/:06/10/2020 12:01:44 ACR BI-RADS Category 0: Incomplete 3340F PARENCHYMAL PATTERN: (A) - The breast(s) demonstrate(s) scattered fibroglandular densities. BI-RADS CATEGORY: (0) - 0 Ultrasound [id number] Immediate follow-up LATERALITY: (B)
== END 2020-06-10 10:44 | disposition home or self-care (01) ==
LOC: DI 10:43
PROVIDERS: ATTEND Family Medicine
DX: N64.4 Mastodynia (principal)
CPT/HCPCS: 76642; 77066

== ENCOUNTER 2020-09-10 10:46 | Outpatient (CLI) | payer OTHER ==
--- NOTE | 2020-09-11 10:28 | Mammography Report ---
UNILATERAL RIGHT DIGITAL DIAGNOSTIC MAMMOGRAM 3D/2D: 09/10/2020 CLINICAL: Occasional right breast pain. Comparison is made to exams dated: 06/10/2020 mammogram, 06/12/2019 mammogram, 11/11/2018 mammogram, and 09/24/2015 mammogram - [facility]. There are scattered fibroglandular elements in right breast. No significant masses, calcifications, or other findings are seen in the breast. IMPRESSION: NEGATIVE There is no abnormality seen in the right breast to correspond with the area of clinical concern and pain in the right breast. There is no mammographic evidence of malignancy. Return to annual mammogram screening schedule is rec ommended. Future imaging is recommended as follows: 06/11/2021 screening mammogram. This exam was interpreted at Station ID: [id number]. NOTE: For mammograms, a report in lay terms will be sent to the patient. Approximately 15% of breast malignancies will not be visualized mammographically. In the management of a palpable breast mass, a negative mammogram must not discourage biopsy of a clinically suspicious lesion. Electronically Signed By: Karan Brown acr/:09/10/2020 11:56:59 ACR BI-RADS Category 1: Negative 3341F PARENCHYMAL PATTERN: (A) - The breast(s) demonstrate(s) scattered fibroglandular densities. BI-RADS CATEGORY: (1) - 1 RECOMMENDATION: (ANNUAL) - Recommend routine annual screening mammography. [id number] return to screening LATERALITY: (B)
== END 2020-09-10 10:47 | disposition home or self-care (01) ==
LOC: DI 10:46
PROVIDERS: ATTEND Nurse Practitioner Family
DX: N64.4 Mastodynia (principal)

== ENCOUNTER 2020-09-25 08:00 | Outpatient (CLI) | payer OTHER ==
[2020-09-25 13:36] LABS: BASOPHILS % (AUTO) 0.5 %; EOSINOPHILS # (AUTO) 0.1 10^3/uL (0.0-0.7); EOSINOPHILS % (AUTO) 1.6 %; HGB - HEMOGLOBIN 12.8 g/dL (12.0-16.0); LYMPHOCYTES % (AUTO) 33.5 %; MEAN CORPUSCULAR HEMOGLOBIN 31.6 pg (27.0-31.0); MEAN CORPUSCULAR HGB CONC 31.9 g/dL (32.0-36.0); MEAN PLATELET VOLUME 9.2 fL (7.9-10.8); MONOCYTES # (AUTO) 0.5 10^3/uL (0.0-1.0); MONOCYTES % (AUTO) 5.9 %; NEUTROPHILS # (AUTO) 5.1 10^3/uL (1.5-6.6); PLT - PLATELET COUNT 385 10^3/uL (130-450); RED BLOOD COUNT 4.05 10^6/uL (4.20-5.40); RED CELL DISTRIBUTION WIDTH 12.7 % (12.0-15.0); WHITE BLOOD COUNT 8.8 x10^3/uL (4.8-10.8)
[2020-09-25 14:09] LABS: ALBUMIN/GLOBULIN RATIO 1.2 (1.0-2.2); ALKALINE PHOSPHATASE 57 IU/L (42-121); ALT ALANINE AMINOTRANSFERASE 13 IU/L (10-60); AST ASPARTATE AMINOTRANSFERASE 18 IU/L (10-42); BILIRUBIN,TOTAL 0.5 mg/dL (0.2-1.0); BUN - BLOOD UREA NITROGEN 14 mg/dL (6-20); CALCIUM 9.5 mg/dL (8.5-10.3); CARBON DIOXIDE - CO2 25 mmol/L (21-32); CHLORIDE 102 mmol/L (101-111); CHOL/HDL RATIO 4.8 (<4.4); CHOLESTEROL 240 mg/dL; CREATININE 0.8 mg/dL (0.4-1.0); GLUCOSE 87 mg/dL (70-100); HDL CHOLESTEROL 50 mg/dL; LDL CHOLESTEROL,CALCULATED 157 mg/dL; LDL/HDL RATIO 3.1 (<4.4); TOTAL PROTEIN 7.3 g/dL (6.7-8.2); VLDL CHOLESTEROL 33 mg/dL
[2020-09-25 14:50] LABS: HEMOGLOBIN A1c% 4.8 % (4.27-6.07)
== END 2020-09-25 23:59 | disposition home or self-care (01) ==
LOC: LAB.WCP 08:00
PROVIDERS: ATTEND Family Medicine
DX: E78.1 Pure hyperglyceridemia (principal); E03.9 Hypothyroidism, unspecified; Z79.899 Other long term (current) drug therapy
CPT/HCPCS: 36415; 80053; 80061; 83036; 83721; 84443; 85025

== ENCOUNTER 2020-12-19 13:12 | Outpatient (CLI) | payer OTHER ==
--- NOTE | 2020-12-19 17:46 | XRAY Report ---
PROCEDURE: Knee 3 View RT INDICATIONS: SPRAIN OF RIGHT MCL, KNEE TECHNIQUE: 3 views of the right knee(s) were acquired. COMPARISON: None. FINDINGS: Bones: No fractures or dislocations. No suspicious bony lesions. Mild tricompartmental osteoarthrit is. Soft tissues: Trace suprapatellar joint effusion. No suspicious soft tissue calcifications. IMPRESSION: 1. No fracture. No acute osseous lesion. If there persistent symptoms or continued clinical concern f or pathology, then repeat plain film radiographs (7-10 days) or advanced imaging (CT, MR, bone scan) should be considered for further evaluation. 2. Mild tricompartmental osteoarthritis. Reviewed by: Erika Chacko MD, PhD on 12/19/2020 5:44 PM PDT Approved by: Erika Chacko MD, PhD on 12/19/2020 5:44 PM PDT Station ID: [id number]
== END 2020-12-19 23:59 | disposition home or self-care (01) ==
LOC: DI.N 13:12
PROVIDERS: ATTEND Emergency Medicine
DX: S83.411A Sprain of medial collateral ligament of right knee, initial encounter (principal); M17.11 Unilateral primary osteoarthritis, right knee

== ENCOUNTER 2021-03-31 17:44 | Emergency (ER) | payer OTHER ==
[2021-03-31] MEDS ORDERED: MINERAL OIL ENEMA 133 ML BOTTLE RC STA (20:11)
--- NOTE | 2021-03-31 21:06 | XRAY Report ---
PROCEDURE: Abdomen 2 View X-Ray INDICATIONS: constipation X 10 days TECHNIQUE: 2 views of the abdomen were acquired. COMPARISON: 01/15/2017 FINDINGS: Surgical changes and devices: Cholecystectomy clips.. Bowel: No pneumoperitoneum. The bowel gas pattern is nonspecific. Large amount of stool seen throug hout the colon. Soft tissues: No masses; visualized solid organ contours appear normal in size. No suspicious abdom inal calcifications. Bones: No suspicious bony abnormalities. IMPRESSION: Severe fecal loading throughout the colon. Reviewed by: Erika Chacko MD, PhD on 03/31/2021 9:04 PM PDT Approved by: Erika Chacko MD, PhD on 03/31/2021 9:04 PM PDT Station ID: [id number]
[2021-03-31] MEDS ORDERED: IOPAMIDOL-300 100 ML VIAL ONE (21:15)
[2021-03-31] MEDS ORDERED: IOVERSOL 320 50 ML VIAL ONE (21:17)
[2021-03-31 21:25] LABS: BASOPHILS # (AUTO) 0.1 10^3/uL (0.0-0.1); BASOPHILS % (AUTO) 0.6 %; EOSINOPHILS # (AUTO) 0.1 10^3/uL (0.0-0.7); HCT - HEMATOCRIT 37.2 % (37.0-47.0); HGB - HEMOGLOBIN 12.3 g/dL (12.0-16.0); LYMPHOCYTES # (AUTO) 3.2 10^3/uL (1.5-3.5); LYMPHOCYTES % (AUTO) 29.8 %; MEAN CORPUSCULAR HEMOGLOBIN 32.2 pg (27.0-31.0); MEAN CORPUSCULAR HGB CONC 33.1 g/dL (32.0-36.0); MEAN CORPUSCULAR VOLUME 97.4 fL (81.0-99.0); MEAN PLATELET VOLUME 8.3 fL (7.9-10.8); MONOCYTES # (AUTO) 0.5 10^3/uL (0.0-1.0); MONOCYTES % (AUTO) 4.6 %; NEUTROPHILS # (AUTO) 6.9 10^3/uL (1.5-6.6); NEUTROPHILS % (AUTO) 63.4 %; PLT - PLATELET COUNT 356 10^3/uL (130-450); RED BLOOD COUNT 3.82 10^6/uL (4.20-5.40); RED CELL DISTRIBUTION WIDTH 15.6 % (12.0-15.0); WHITE BLOOD COUNT 10.8 x10^3/uL (4.8-10.8)
[2021-03-31 21:25] LABS: BILIRUBIN,URINE NEGATIVE (NEGATIVE); GLUCOSE, URINE (UA) NEGATIVE (NEGATIVE); KETONES,URINE (UA) NEGATIVE (NEGATIVE); LEUKOCYTE ESTERASE, URINE NEGATIVE (NEGATIVE); NITRITE,URINE NEGATIVE (NEGATIVE); OCCULT BLOOD,URINE NEGATIVE (NEGATIVE); PROTEIN,URINE NEGATIVE (NEGATIVE); UROBILINOGEN,URINE 0.2 (NORMAL) E.U./dL (NORMAL)
[2021-03-31 21:27] LABS: CLARITY,URINE CLEAR (CLEAR)
[2021-03-31 21:39] LABS: ALBUMIN 4.6 g/dL (3.2-5.5); ALBUMIN/GLOBULIN RATIO 1.4 (1.0-2.2); BILIRUBIN,TOTAL 0.7 mg/dL (0.2-1.0); CALCIUM 9.9 mg/dL (8.5-10.3); CREATININE 0.9 mg/dL (0.4-1.0); POTASSIUM 3.8 mmol/L (3.5-5.0)
--- NOTE | 2021-03-31 22:13 | ED Physician Documentation ---
History of Present Illness - Stated complaint Stated Complaint: L SIDE PX, CONSTIPATION - Chief complaint Chief Complaint: Abd Pain - History obtained from History obtained from: Patient - Additonal information Additional information: 50-year-old woman with history of IBS, depression and anxiety, family history of Crohn's disease, presents with constipation for the past 10 days and inability past flatus over the past 2 days. No history of abdominal surgery or cancer. Has nausea or vomiting. Does endorse left lower quadrant abdominal pain that radiates diffusely and is constant, aching, mild to moderate, worse with pressing on it. Denies urinary symptoms. Review of Systems Ten Systems: 10 systems reviewed and negative Constitutional: denies: Fever, Chills GI: reports: Abdominal Pain, Constipation. denies: Nausea, Vomiting : denies: Dysuria PD PAST MEDICAL HISTORY - Past Medical History Cardiovascular: High cholesterol, Deep vein thrombosis, Pulmonary embolism Respiratory: Other Endocrine/Autoimmune: HyPOthyroidism GI: Chronic constipation, Other : Other HEENT: None Psych: Depression, Anxiety, Bipolar disorder Musculoskeletal: Osteoarthritis, Fibromyalgia, Chronic back pain Derm: None - Past Surgical History Past Surgical History: Yes General: Colonoscopy - Present Medications Home Medications: Ambulatory Orders Medication Instructions Recorded Confirmed Amitriptyline HCl 150 mg PO HS 03/10/13 09/26/18 Levothyroxine [Synthroid] 88 mcg PO QDAC 03/10/13 09/26/18 [place] Carbonate 600 mg PO HS 03/10/13 09/26/18 Morphine ER [Ms Contin] 15 mg PO Q12H 03/10/13 09/26/18 Tizanidine HCl [Zanaflex] 4 mg PO BID 03/10/13 09/26/18 lamoTRIgine [Lamictal Xr] 200 mg PO DAILY 03/10/13 09/26/18 Albuterol [Ventolin Hfa] 1 puffs INH DAILY PRN 10/04/13 09/26/18 Fluticasone/Salmeterol 100/50 1 puffs INH DAILY 10/04/13 09/26/18 [Advair 100 Mcg/50 Mcg] Hyoscyamine [Levsin] 0.125 mg PO DAILY PRN 04/10/15 09/26/18 Lubiprostone [Amitiza] 24 mcg PO DAILY 04/10/15 09/26/18 Omeprazole 20 mg PO DAILY 04/10/15 09/26/18 QUEtiapine [SEROquel] 200 mg PO DAILY 04/10/15 09/26/18 [place] [[place] Carbonate] 150 mg PO DAILY 05/13/16 09/26/18 Naproxen 375 mg PO BID #20 tablet 09/26/18 Oxycodone HCl/Acetaminophen 1 each PO Q6H PRN #12 tablet 09/26/18 [Percocet 5-325 mg Tablet] dexAMETHasone [Decadron] 4 mg PO DAILY #5 tablet 09/26/18 - Allergies Allergies/Adverse Reactions: Allergies Allergy/AdvReac Type Severity Reaction Status Date / Time Penicillins Allergy Severe Hives Verified 03/31/21 17:49 gabapentin Allergy Unknown Verified 03/31/21 17:49 ondansetron Allergy Unknown Verified 03/31/21 17:49 pregabalin [From Lyrica] Allergy Unknown Verified 03/31/21 17:49 bromocriptine mesylate * AdvReac Intermediate syncope Verified 03/31/21 17:49 [From Parlodel] lidocaine AdvReac Intermediate vomitting Verified 03/31/21 17:49 metronidazole [From Flagyl] AdvReac Intermediate vomitting Verified 03/31/21 17:49 Metronidazole HCl * AdvReac Intermediate vomitting Verified 03/31/21 17:49 [From Flagyl] Fish Containing Products AdvReac Emesis Verified 03/31/21 17:49 - Social History Does the pt smoke?: No Smoking Status: Never smoker Does the pt drink ETOH?: No Does the pt have substance abuse?: No - Immunizations Immunizations are current?: Yes PD ED PE NORMAL - Vitals Vital signs reviewed: Yes - General General: Alert and oriented X 3, No acute distress, Well developed/nourished - HEENT HEENT: Atraumatic, PERRL, EOMI - Neck Neck: Supple, no meningeal sign - Cardiac Cardiac: RRR - Respiratory Respiratory: No respiratory distress, Clear bilaterally - Abdomen Abdomen: Non tender, Non distended, Other (Discomfort in the left upper quadrant to palpation. Otherwise nontender nondistended) - Rectal Rectal: Other (Digital rectal exam without any stool in the vault.) - Back Back: No CVA TTP - Derm Derm: Normal color, Warm and dry - Extremities Extremities: No deformity - Neuro Neuro: Alert and oriented X 3 Results - Vitals Vitals: Vital Signs - 24 hr 03/31/21 03/31/21 03/31/21 17:49 20:25 22:02 Temperature 36.5 C Heart Rate 88 72 80 Respiratory 16 18 18 Rate Blood Pressure 133/75 H 112/83 H 122/94 H O2 Saturation 98 98 99 04/01/21 00:00 Temperature 36.5 C Heart Rate 80 Respiratory 16 Rate Blood Pressure 122/92 H O2 Saturation 99 Oxygen O2 Source Room air - Labs Labs: Laboratory Tests 03/31/21 03/31/21 03/31/21 19:36 21:18 21:18 WBC 10.8 RBC 3.82 L Hgb 12.3 Hct 37.2 MCV 97.4 MCH 32.2 H MCHC 33.1 RDW 15.6 H Plt Count 356 MPV 8.3 Neut # (Auto) 6.9 H Lymph # (Auto) 3.2 [place] # (Auto) 0.5 Eos # (Auto) 0.1 Baso # (Auto) 0.1 Absolute Nucleated RBC 0.00 Nucleated RBC % 0.0 Sodium 140 Potassium 3.8 Chloride 103 Carbon Dioxide 28 Anion Gap 9.0 BUN 13 Creatinine 0.9 Estimated GFR (MDRD) 66 L Glucose 101 H Calcium 9.9 Total Bilirubin 0.7 AST 18 ALT 13 Alkaline Phosphatase 66 Total Protein 8.0 Albumin 4.6 Globulin 3.4 Albumin/Globulin Ratio 1.4 Lipase 29 Urine Color YELLOW Urine Clarity CLEAR Urine pH 6.0 Ur Specific [place] <=1.005 Urine Protein NEGATIVE Urine Glucose (UA) NEGATIVE Urine Ketones NEGATIVE Urine Occult Blood NEGATIVE Urine Nitrite NEGATIVE Urine Bilirubin NEGATIVE Urine Urobilinogen 0.2 (NORMAL) Ur Leukocyte Esterase NEGATIVE Ur Microscopic Review NOT INDICATED Urine Culture Comments NOT INDICATED Nasal Adenovirus (PCR) Nasal B. parapertussis DNA (PCR) Nasal Coronavir 229E PCR Nasal Coronavir HKU1 PCR Nasal Coronavir NL63 PCR Nasal Coronavir OC43 PCR Nasal Enterovir/Rhinovir PCR Nasal Influenza B PCR Nasal Influenza A PCR Nasal Parainfluen 1 PCR Nasal Parainfluen 2 PCR Nasal Parainfluen 3 PCR Nasal Parainfluen 4 PCR Nasal RSV (PCR) Nasal B.pertussis DNA PCR Nasal C.pneumoniae (PCR) Eric Human Metapneumo PCR Nasal M.pneumoniae (PCR) Nasal SARS-CoV-2 (PCR) 03/31/21 21:56 WBC RBC Hgb Hct MCV MCH MCHC RDW Plt Count MPV Neut # (Auto) Lymph # (Auto) [place] # (Auto) Eos # (Auto) Baso # (Auto) Absolute Nucleated RBC Nucleated RBC % Sodium Potassium Chloride Carbon Dioxide Anion Gap BUN Creatinine Estimated GFR (MDRD) Glucose Calcium Total Bilirubin AST ALT Alkaline Phosphatase Total Protein Albumin Globulin Albumin/Globulin Ratio Lipase Urine Color Urine Clarity Urine pH Ur Specific [place] Urine Protein Urine Glucose (UA) Urine Ketones Urine Occult Blood Urine Nitrite Urine Bilirubin Urine Urobilinogen Ur Leukocyte Esterase Ur Microscopic Review Urine Culture Comments Nasal Adenovirus (PCR) NOT DETECTED Nasal B. parapertussis DNA (PCR) NOT DETECTED Nasal Coronavir 229E PCR NOT DETECTED Nasal Coronavir HKU1 PCR NOT DETECTED Nasal Coronavir NL63 PCR NOT DETECTED Nasal Coronavir OC43 PCR NOT DETECTED Nasal Enterovir/Rhinovir PCR NOT DETECTED Nasal Influenza B PCR NOT DETECTED Nasal Influenza A PCR NOT DETECTED Nasal Parainfluen 1 PCR NOT DETECTED Nasal Parainfluen 2 PCR NOT DETECTED Nasal Parainfluen 3 PCR NOT DETECTED Nasal Parainfluen 4 PCR NOT DETECTED Nasal RSV (PCR) NOT DETECTED Nasal B.pertussis DNA PCR NOT DETECTED Nasal C.pneumoniae (PCR) NOT DETECTED Eric Human Metapneumo PCR NOT DETECTED Nasal M.pneumoniae (PCR) NOT DETECTED Nasal SARS-CoV-2 (PCR) NOT DETECTED PD MEDICAL DECISION MAKING - ED course ED course: 50-year-old woman presents with suspected bowel obstruction based on possible air-fluid levels on KUB. Will obtain CT to evaluate further. CT abd noncontributory. large stool burden however no signs of obstruction. d/w radiologist who confirmed he has no suspicion for obstruction. d/w patient and strict return precautions given. she will f/u with her PCP for referal GI. Departure - Departure Disposition: 01 Home, Self Care Clinical Impression: Abdominal pain, Constipation Condition: Good Instructions: ED Constipation Comments: You are seen in the emergency department for abdominal pain and constipation. Your lab work and CT were unremarkable except for a large amount of stool in the colon (large intestines). Ensure that you start taking senna and docusate daily, drink 8 to 10 glasses of water daily, continue MiraLAX, enemas, and eat high-fiber foods. You can also consider supplementing with Metamucil if you drink adequate water. Please follow-up with your primary doctor in regards to these findings and for possible referral to gastroenterology. Return to the emergency department if you develop any new or worsening symptoms or have other concerns.
[2021-03-31] MEDS ORDERED: IOPAMIDOL-300 100 ML VIAL IVP ONE (22:42)
[2021-03-31] MEDS ORDERED: IOVERSOL 320 50 ML VIAL PO ONE (22:42)
[2021-03-31 22:54] LABS: B. PARAPERTUSSIS- RESP PCR PAN NOT DETECTED; B. PERTUSSIS- RESP PCR PANEL NOT DETECTED; C. PNEUMONIAE- RESP PCR PANEL NOT DETECTED; CORONAVIRUS 229E-RESP PCR NOT DETECTED; CORONAVIRUS HKU1-RESP PCR NOT DETECTED; CORONAVIRUS NL63-RESP PCR NOT DETECTED; CORONAVIRUS OC43-RESP PCR NOT DETECTED; HUMAN METAPNEUMOVIRUS NOT DETECTED; INFLUENZA A- RESP PCR PANEL NOT DETECTED; INFLUENZA B - RESP PCR PANEL NOT DETECTED; M. PNEUMONIAE- RESP PCR PANEL NOT DETECTED; PARAINFLUENZA VIRUS 1 NOT DETECTED; PARAINFLUENZA VIRUS 2 NOT DETECTED; PARAINFLUENZA VIRUS 3 NOT DETECTED; PARAINFLUENZA VIRUS 4 NOT DETECTED; RHINOVIRUS/ENTEROVIRUS NOT DETECTED; RSV- RESP PCR PANEL NOT DETECTED; SARS-CoV-2 -RESP PCR PANEL NOT DETECTED
[2021-04-01 00:07] VITALS: BP 122/92
--- NOTE | 2021-04-01 09:02 | CT Report ---
PROCEDURE: Abdomen/Pelvis W INDICATIONS: Abdominal pain, acute, nonlocalized CONTRAST: IV CONTRAST: Isovue 300 ml: 100 PO CONTRAST: Optiray 320 ml50 TECHNIQUE: After the administration of intravenous contrast, 5 mm thick sections acquired from the diaphragms to the symphysis. 5 mm thick coronal and sagittal reformats were acquired. For radiation dose reducti on, the following was used: automated exposure control, adjustment of mA and/or kV according to diallo ent size. COMPARISON: None. FINDINGS: Image quality: Excellent. ABDOMEN: Lung bases: Lung bases are clear. Heart size is normal. Solid organs: Liver and spleen are normal in size and enhancement. Gallbladder has been removed. Bi liary system is non dilated. Pancreas enhances normally. No adrenal nodules. Kidneys demonstrate n ormal size and enhancement, without hydronephrosis. Peritoneum and bowel: Large volume of formed stool throughout most of the colon. No abnormally dilate d or thickened loops of bowel. No pericolonic mesenteric inflammatory changes. Normal appendix. Nodes and vessels: No retroperitoneal or mesenteric adenopathy by size criteria. Aorta and inferior vena cava are normal in size. Miscellaneous: No ventral hernias. PELVIS: Genitourinary: Bladder wall thickness is normal. Miscellaneous: No inguinal hernias or adenopathy. Bones: No suspicious bony lesions. No vertebral body compression fractures. IMPRESSION: No acute finding. Large volume of stool throughout the colon may indicate constipation. No significant change from preliminary report. Reviewed by: Jose Roberto Benson MD on 04/01/2021 9:01 AM PDT Approved by: Jose Roberto Benson MD on 04/01/2021 9:01 AM PDT Station ID: [id number]
== END 2021-04-01 00:30 | disposition home or self-care (01) ==
LOC: ED 17:44
DX: K59.00 Constipation, unspecified (principal); R10.32 Left lower quadrant pain; Z20.822 Contact with and (suspected) exposure to COVID-19
CPT/HCPCS: 0202U; 36415; 74019; 74177; 80053; 81003; 83690; 85025; 99284; A9270; Q9967; 81001; 87086

== ENCOUNTER 2021-06-05 10:00 | Outpatient (CLI) | payer OTHER | END 2021-06-05 23:59 | disposition home or self-care (01) | LOC: LAB 10:00 | PROVIDERS: ATTEND Family Medicine | DX: R30.0 Dysuria (principal) | CPT/HCPCS: 87086; 87181 ==

== ENCOUNTER 2021-07-18 16:47 | Outpatient (CLI) | payer OTHER | END 2021-07-18 16:48 | disposition home or self-care (01) | LOC: LAB 16:47 → LAB.R 16:48 | PROVIDERS: ATTEND Physician Assistant Medical | DX: N30.10 Interstitial cystitis (chronic) without hematuria (principal) | CPT/HCPCS: 87077; 87086; 87181 ==

== ENCOUNTER 2021-07-30 12:38 | Outpatient (CLI) | payer OTHER | END 2021-07-30 12:39 | disposition home or self-care (01) | LOC: LAB 12:38 | PROVIDERS: ATTEND Internal Medicine Gastroenterology | DX: K58.1 Irritable bowel syndrome with constipation (principal) | CPT/HCPCS: 36415; 84443 ==

== ENCOUNTER 2021-09-29 13:47 | Outpatient (CLI) | payer OTHER ==
[2021-09-29 14:26] LABS: ALBUMIN 4.1 g/dL (3.2-5.5); CALCIUM 9.2 mg/dL (8.5-10.3); CREATININE 0.9 mg/dL (0.4-1.0); PHOSPHORUS 2.8 mg/dL (2.5-4.6); POTASSIUM 3.8 mmol/L (3.5-5.0)
[2021-09-29 14:55] LABS: LITHIUM 0.52 mmol/L
== END 2021-09-29 13:48 | disposition home or self-care (01) ==
LOC: LAB 13:47
PROVIDERS: ATTEND Nurse Practitioner Psychiatric/Mental Health
DX: F39 Unspecified mood [affective] disorder (principal)
CPT/HCPCS: 36415; 80069; 80178

== ENCOUNTER 2022-03-10 13:56 | Outpatient (CLI) | payer OTHER ==
--- NOTE | 2022-03-11 10:38 | Mammography Report ---
BILATERAL DIGITAL SCREENING MAMMOGRAM 3D/2D: 03/10/2022 CLINICAL: Routine screening. Comparison is made to exams dated: 09/10/2020 mammogram, 06/10/2020 mammogram, 06/12/2019 mammogram, 11/11/2018 mammogram, and 09/24/2015 mammogram - [facility]. There are scattered fibr oglandular elements in both breasts. No significant masses, calcifications, or other findings are seen in either breast. There has been no significant interval change. IMPRESSION: NEGATIVE There is no mammographic evidence of malignancy. A 1 year screening mammogram is recommended. This exam was interpreted at Station ID: [id number]. NOTE: For mammograms, a report in lay terms will be sent to the patient. Approximately 15% of breast malignancies will not be visualized mammographically. In the management of a palpable breast mass, a negative mammogram must not discourage biopsy of a clinically suspicious lesion. Electronically Signed By: Karan Brown acr/penrad:03/10/2022 14:47:22 ACR BI-RADS Category 1: Negative 3341F PARENCHYMAL PATTERN: (A) - The breast(s) demonstrate(s) scattered fibroglandular densities. BI-RADS CATEGORY: (1) - 1 RECOMMENDATION: (ANNUAL) - Recommend routine annual screening mammography. [id number] 1 year screening LATERALITY: (B)
== END 2022-03-10 13:57 | disposition home or self-care (01) ==
LOC: DI 13:56
DX: Z12.31 Encounter for screening mammogram for malignant neoplasm of breast (principal)

== ENCOUNTER 2022-05-27 14:38 | Outpatient (CLI) | payer OTHER ==
[2022-05-27 14:59] LABS: BASOPHILS % (AUTO) 0.4 %; EOSINOPHILS # (AUTO) 0.2 10^3/uL (0.0-0.7); EOSINOPHILS % (AUTO) 1.3 %; HCT - HEMATOCRIT 38.6 % (37.0-47.0); HGB - HEMOGLOBIN 12.7 g/dL (12.0-16.0); LYMPHOCYTES # (AUTO) 2.8 10^3/uL (1.5-3.5); MEAN CORPUSCULAR HEMOGLOBIN 31.8 pg (27.0-31.0); MEAN CORPUSCULAR HGB CONC 32.9 g/dL (32.0-36.0); MEAN CORPUSCULAR VOLUME 96.5 fL (81.0-99.0); MEAN PLATELET VOLUME 8.2 fL (7.9-10.8); MONOCYTES # (AUTO) 0.6 10^3/uL (0.0-1.0); MONOCYTES % (AUTO) 5.3 %; NEUTROPHILS # (AUTO) 7.5 10^3/uL (1.5-6.6); NEUTROPHILS % (AUTO) 66.9 %; PLT - PLATELET COUNT 371 10^3/uL (130-450); RED CELL DISTRIBUTION WIDTH 12.1 % (12.0-15.0); WHITE BLOOD COUNT 11.3 x10^3/uL (4.8-10.8)
[2022-05-27 15:16] LABS: ALBUMIN 4.1 g/dL (3.2-5.5); ALBUMIN/GLOBULIN RATIO 1.2 (1.0-2.2); ALKALINE PHOSPHATASE 67 IU/L (42-121); ALT ALANINE AMINOTRANSFERASE 15 IU/L (10-60); AST ASPARTATE AMINOTRANSFERASE 17 IU/L (10-42); BILIRUBIN,TOTAL 0.4 mg/dL (0.2-1.0); BUN - BLOOD UREA NITROGEN 15 mg/dL (6-20); CARBON DIOXIDE - CO2 28 mmol/L (21-32); CHLORIDE 102 mmol/L (101-111); CREATININE 0.9 mg/dL (0.4-1.0); GFR - MDRD 66 (>89); GLUCOSE 87 mg/dL (70-100); PHOSPHORUS 3.3 mg/dL (2.5-4.6); POTASSIUM 4.3 mmol/L (3.5-5.0); SODIUM 138 mmol/L (135-145); TOTAL PROTEIN 7.6 g/dL (6.7-8.2)
[2022-05-27 15:30] LABS: THYROID STIMULATING HORMONE 1.2 uIU/mL (0.34-5.60)
[2022-05-27 15:32] LABS: FREE T4 (FREE THYROXINE) 0.8 ng/dL (0.58-1.64)
[2022-05-27 15:36] LABS: BILIRUBIN,DIRECT < 0.1 mg/dL (0.1-0.5)
== END 2022-05-27 14:39 | disposition home or self-care (01) ==
LOC: LAB 14:38
PROVIDERS: ATTEND Nurse Practitioner Psychiatric/Mental Health
DX: F20.9 Schizophrenia, unspecified (principal)
CPT/HCPCS: 36415; 80053; 82248; 82306; 84100; 84439; 84443; 85025

== ENCOUNTER 2022-08-18 14:21 | Outpatient (CLI) | payer OTHER ==
[2022-08-18 15:06] LABS: LITHIUM 0.69 mmol/L
== END 2022-08-18 14:22 | disposition home or self-care (01) ==
LOC: LAB 14:21
PROVIDERS: ATTEND Nurse Practitioner Psychiatric/Mental Health
DX: F90.2 Attention-deficit hyperactivity disorder, combined type (principal)
CPT/HCPCS: 36415; 80178

== ENCOUNTER 2022-09-14 15:20 | Outpatient (CLI) | payer OTHER ==
[2022-09-14 18:19] LABS: BILIRUBIN,URINE NEGATIVE (NEGATIVE); GLUCOSE, URINE (UA) NEGATIVE (NEGATIVE); KETONES,URINE (UA) NEGATIVE (NEGATIVE); LEUKOCYTE ESTERASE, URINE SMALL (NEGATIVE); NITRITE,URINE NEGATIVE (NEGATIVE); OCCULT BLOOD,URINE NEGATIVE (NEGATIVE); PROTEIN,URINE NEGATIVE (NEGATIVE); UROBILINOGEN,URINE 0.2 (NORMAL) E.U./dL (NORMAL)
[2022-09-14 18:37] LABS: BACTERIA,URINE Moderate /HPF (None Seen); CLARITY,URINE HAZY (CLEAR); RBC,URINE 0-5 /HPF (0-5); SQUAMOUS EPITHELIAL CELL,UR MOD Squamous (<= Few)
== END 2022-09-14 23:59 | disposition home or self-care (01) ==
LOC: LAB.WCP 15:20
PROVIDERS: ATTEND Nurse Practitioner
DX: R30.0 Dysuria (principal)
CPT/HCPCS: 81001; 87077; 87086; 87181

== ENCOUNTER 2022-12-14 08:00 | Outpatient (CLI) | payer OTHER ==
[2022-12-14 18:22] LABS: BILIRUBIN,URINE NEGATIVE (NEGATIVE); GLUCOSE, URINE (UA) NEGATIVE (NEGATIVE); KETONES,URINE (UA) NEGATIVE (NEGATIVE); LEUKOCYTE ESTERASE, URINE TRACE (NEGATIVE); NITRITE,URINE NEGATIVE (NEGATIVE); OCCULT BLOOD,URINE NEGATIVE (NEGATIVE); PROTEIN,URINE NEGATIVE (NEGATIVE); UROBILINOGEN,URINE 0.2 (NORMAL) E.U./dL (NORMAL)
[2022-12-14 18:25] LABS: CLARITY,URINE HAZY (CLEAR)
[2022-12-14 18:35] LABS: BACTERIA,URINE Moderate /HPF (None Seen); RBC,URINE 0-5 /HPF (0-5); SQUAMOUS EPITHELIAL CELL,UR MOD Squamous (<= Few)
== END 2022-12-14 23:59 | disposition home or self-care (01) ==
LOC: LAB.WCP 08:00
PROVIDERS: ATTEND Nurse Practitioner
DX: N30.10 Interstitial cystitis (chronic) without hematuria (principal); R30.0 Dysuria
CPT/HCPCS: 81001; 87086

== ENCOUNTER 2023-01-07 16:48 | Outpatient (CLI) | payer OTHER ==
[2023-01-07 17:33] LABS: BASOPHILS # (AUTO) 0.1 10^3/uL (0.0-0.1); BASOPHILS % (AUTO) 0.5 %; EOSINOPHILS # (AUTO) 0.2 10^3/uL (0.0-0.7); EOSINOPHILS % (AUTO) 1.7 %; HCT - HEMATOCRIT 36.8 % (37.0-47.0); LYMPHOCYTES # (AUTO) 2.7 10^3/uL (1.5-3.5); LYMPHOCYTES % (AUTO) 28.3 %; MEAN CORPUSCULAR HEMOGLOBIN 32.1 pg (27.0-31.0); MEAN CORPUSCULAR HGB CONC 32.6 g/dL (32.0-36.0); MEAN CORPUSCULAR VOLUME 98.4 fL (81.0-99.0); MEAN PLATELET VOLUME 8.7 fL (7.9-10.8); MONOCYTES # (AUTO) 0.5 10^3/uL (0.0-1.0); MONOCYTES % (AUTO) 4.9 %; NEUTROPHILS # (AUTO) 6.1 10^3/uL (1.5-6.6); NEUTROPHILS % (AUTO) 64.1 %; PLT - PLATELET COUNT 384 10^3/uL (130-450); RED BLOOD COUNT 3.74 10^6/uL (4.20-5.40); RED CELL DISTRIBUTION WIDTH 14.7 % (12.0-15.0); WHITE BLOOD COUNT 9.6 x10^3/uL (4.8-10.8)
[2023-01-07 17:37] LABS: ALBUMIN 4.3 g/dL (3.2-5.5); ALBUMIN/GLOBULIN RATIO 1.2 (1.0-2.2); ALKALINE PHOSPHATASE 65 IU/L (42-121); ALT ALANINE AMINOTRANSFERASE 18 IU/L (10-60); AST ASPARTATE AMINOTRANSFERASE 20 IU/L (10-42); BILIRUBIN,TOTAL 0.5 mg/dL (0.2-1.0); BUN - BLOOD UREA NITROGEN 13 mg/dL (6-20); CALCIUM 9.8 mg/dL (8.5-10.3); CARBON DIOXIDE - CO2 28 mmol/L (21-32); CHLORIDE 102 mmol/L (101-111); CHOL/HDL RATIO 4.9 (<4.4); CHOLESTEROL 256 mg/dL; CREATININE 0.9 mg/dL (0.4-1.0); GFR - MDRD 66 (>89); GLUCOSE 88 mg/dL (70-100); HDL CHOLESTEROL 52 mg/dL; LDL CHOLESTEROL,CALCULATED 156 mg/dL; POTASSIUM 3.9 mmol/L (3.5-5.0); SODIUM 139 mmol/L (135-145); TRIGLYCERIDES 239 mg/dL; VLDL CHOLESTEROL 48 mg/dL
[2023-01-07 17:40] LABS: BILIRUBIN,URINE NEGATIVE (NEGATIVE); GLUCOSE, URINE (UA) NEGATIVE (NEGATIVE); KETONES,URINE (UA) NEGATIVE (NEGATIVE); LEUKOCYTE ESTERASE, URINE NEGATIVE (NEGATIVE); NITRITE,URINE NEGATIVE (NEGATIVE); OCCULT BLOOD,URINE NEGATIVE (NEGATIVE); PROTEIN,URINE NEGATIVE (NEGATIVE); UROBILINOGEN,URINE 0.2 (NORMAL) E.U./dL (NORMAL)
[2023-01-07 17:41] LABS: CLARITY,URINE CLEAR (CLEAR)
[2023-01-07 17:47] LABS: LITHIUM 0.63 mmol/L
[2023-01-07 17:51] LABS: THYROID STIMULATING HORMONE 2.26 uIU/mL (0.34-5.60)
[2023-01-07 17:53] LABS: FREE T4 (FREE THYROXINE) 0.81 ng/dL (0.58-1.64)
[2023-01-07 17:55] LABS: BACTERIA,URINE Rare /HPF (None Seen); RBC,URINE 0-5 /HPF (0-5); SQUAMOUS EPITHELIAL CELL,UR FEW Squamous (<= Few); WBC,URINE 0-3 /HPF (0-5)
== END 2023-01-07 16:49 | disposition home or self-care (01) ==
LOC: LAB 16:48
PROVIDERS: ATTEND Nurse Practitioner
DX: N30.10 Interstitial cystitis (chronic) without hematuria (principal); Z79.899 Other long term (current) drug therapy
CPT/HCPCS: 36415; 80053; 80061; 80178; 81001; 83721; 84439; 84443; 85025; 87086

== ENCOUNTER 2023-01-20 08:00 | Outpatient (CLI) | payer OTHER | END 2023-01-20 23:59 | disposition home or self-care (01) | LOC: LAB.S 08:00 | PROVIDERS: ATTEND Physician Assistant | DX: R30.0 Dysuria (principal) | CPT/HCPCS: 87086 ==

== ENCOUNTER 2023-03-25 14:05 | Outpatient (CLI) | payer OTHER ==
[2023-03-25 14:29] LABS: CHOL/HDL RATIO 4.7 (<4.4); CHOLESTEROL 218 mg/dL; HDL CHOLESTEROL 46 mg/dL; LDL CHOLESTEROL,CALCULATED 138 mg/dL; TRIGLYCERIDES 172 mg/dL (48-352); VLDL CHOLESTEROL 34 mg/dL
== END 2023-03-25 14:06 | disposition home or self-care (01) ==
LOC: LAB 14:05
PROVIDERS: ATTEND Nurse Practitioner
DX: E78.5 Hyperlipidemia, unspecified (principal); Z51.81 Encounter for therapeutic drug level monitoring
CPT/HCPCS: 36415; 80061; 83721

== ENCOUNTER 2023-04-06 12:33 | Outpatient (CLI) | payer OTHER ==
[2023-04-06 12:48] LABS: BILIRUBIN,URINE NEGATIVE (NEGATIVE); GLUCOSE, URINE (UA) NEGATIVE (NEGATIVE); KETONES,URINE (UA) NEGATIVE (NEGATIVE); LEUKOCYTE ESTERASE, URINE LARGE (NEGATIVE); NITRITE,URINE NEGATIVE (NEGATIVE); OCCULT BLOOD,URINE NEGATIVE (NEGATIVE); PH,URINE 6.5 PH (5.0-7.5); PROTEIN,URINE NEGATIVE (NEGATIVE); UROBILINOGEN,URINE 0.2 (NORMAL) E.U./dL (NORMAL)
[2023-04-06 13:04] LABS: BACTERIA,URINE Rare /HPF (None Seen); CLARITY,URINE HAZY (CLEAR); RBC,URINE 0-5 /HPF (0-5); SQUAMOUS EPITHELIAL CELL,UR MOD Squamous (<= Few)
== END 2023-04-06 12:34 | disposition home or self-care (01) ==
LOC: LAB 12:33
PROVIDERS: ATTEND Nurse Practitioner
DX: R30.0 Dysuria (principal)
CPT/HCPCS: 81001; 87086

== ENCOUNTER 2023-04-15 08:00 | Outpatient (CLI) | payer OTHER ==
[2023-04-15 15:27] LABS: BILIRUBIN,URINE NEGATIVE (NEGATIVE); GLUCOSE, URINE (UA) NEGATIVE (NEGATIVE); KETONES,URINE (UA) NEGATIVE (NEGATIVE); LEUKOCYTE ESTERASE, URINE TRACE (NEGATIVE); NITRITE,URINE NEGATIVE (NEGATIVE); OCCULT BLOOD,URINE NEGATIVE (NEGATIVE); PROTEIN,URINE NEGATIVE (NEGATIVE); UROBILINOGEN,URINE 0.2 (NORMAL) E.U./dL (NORMAL)
[2023-04-15 15:39] LABS: CLARITY,URINE CLEAR (CLEAR)
[2023-04-15 15:40] LABS: BACTERIA,URINE Rare /HPF (None Seen); RBC,URINE 0-5 /HPF (0-5); SQUAMOUS EPITHELIAL CELL,UR RARE Squamous (<= Few)
== END 2023-04-15 23:59 | disposition home or self-care (01) ==
LOC: LAB 08:00
PROVIDERS: ATTEND Urology
DX: N30.10 Interstitial cystitis (chronic) without hematuria (principal)
CPT/HCPCS: 81001; 87086

== ENCOUNTER 2023-04-20 13:29 | Outpatient (CLI) | payer OTHER ==
--- NOTE | 2023-04-20 14:04 | XRAY Report ---
PROCEDURE: Cervical Spine 2 View INDICATIONS: NECK PAIN,CHRONIC TECHNIQUE: 3 view(s) of the cervical spine were acquired. COMPARISON: None. FINDINGS: Bones: Straightening of normal cervical lordosis. Trace, likely degenerative anterolisthesis of C4 on C5. Vertebral body heights are well-maintained. There is no traumatic subluxation. Odontoid view is suboptimal, no gross malalignment. Moderate degenerative changes overall. Soft tissues: No pathologic prevertebral soft tissue swelling. IMPRESSION: Moderate overall degenerative changes. Straightening of normal cervical lordosis. If there is high co ncern for further derangement, consider MRI evaluation. Reviewed by: Rush Chavez MD on 04/20/2023 2:03 PM PDT Approved by: Rush Chavez MD on 04/20/2023 2:03 PM PDT Station ID: [id number]
== END 2023-04-20 13:30 | disposition home or self-care (01) ==
LOC: DI 13:29
PROVIDERS: ATTEND Nurse Practitioner
DX: M47.812 Spondylosis without myelopathy or radiculopathy, cervical region (principal)

== ENCOUNTER 2023-08-26 14:30 | Outpatient (CLI) | payer OTHER ==
--- NOTE | 2023-08-27 12:48 | Ultrasound Report ---
LIMITED ULTRASOUND OF LEFT BREAST: 08/26/2023 CLINICAL: Diffuse left breast pain. Comparison is made to exams dated: 03/03/2023 mammogram, 03/10/2022 mammogram, 09/10/2020 mammogram, ultrasound, and 06/10/2020 mammogram - [facility]. Real-time ultrasound of the left breast 3-5 o'clock region was performed. Benites scale images of the real-time examination were reviewed. No significant abnormalities were seen sonographically in the left breast. IMPRESSION: NEGATIVE There is no sonographic evidence of malignancy. There is no abnormality seen in the left breast to correspond with the pain, however, clinical follow up is recommended. Return to annual mammogram screening schedule is recommended. Future imaging is recommended as follo ws: 03/03/2024 screening mammogram. This exam was interpreted at Station ID: [id number]. Electronically Signed By: Serjio zarco/richelle:08/26/2023 15:55:39 letter sent: No_Letter Ultrasound BI-RADS: 1 Negative BI-RADS CATEGORY: (1) - 1 Mammogram [id number] return to screening LATERALITY: (B)
== END 2023-08-26 14:31 | disposition home or self-care (01) ==
LOC: DI 14:30
PROVIDERS: ATTEND Nurse Practitioner
DX: N64.4 Mastodynia (principal)

== ENCOUNTER 2023-09-23 13:50 | Outpatient (CLI) | payer OTHER ==
--- NOTE | 2023-09-23 21:53 | MRI Report ---
PROCEDURE: Shoulder RT WO INDICATIONS: R SHOULDER IMPINGEMENT SYN TECHNIQUE: Noncontrast oblique coronal T2 fast spin echo with fat saturation, oblique sagittal T1 spin echo and T2 fast spin echo with fat saturation, axial T1 spin echo and T2 fast spin echo with fat saturation a nd 3-D gradient echo through the shoulder. COMPARISON: Right shoulder radiographs 05/20/2016. FINDINGS: Image quality: Excellent. Rotator cuff: There is focal low-grade partial intrasubstance tearing of the supraspinatus tendon at the distal insertion measuring 6 mm in anteroposterior dimension superimposed on mild tendinosis. Mil d infraspinatus tendinosis is also seen. The teres minor tendon is intact. There is mild subscapulari s tendinosis. Rotator cuff musculature is normal in bulk. Bones and bursae: No acute trabecular bone injury or fracture. Mild spurring is seen in the glenoid r im. Mild to moderate degenerative changes are seen at the acromioclavicular joint with subchondral cy stic changes and small marginal osteophytes. There is trace subacromial/subdeltoid bursal fluid. No s ignificant glenohumeral effusion is seen. Capsule and soft tissues: There is mild intrasubstance degeneration at the superior labrum. No displa tomi labral tear is seen. There is mild tendinosis of the proximal biceps long head tendon. Normal fat signal seen in the rotator interval. Glenohumeral ligaments are grossly intact. IMPRESSION: 1.Focal high-grade partial intrasubstance tearing of the supraspinatus tendon at the distal insertion measuring 6 mm in anteroposterior dimension. Mild diffuse rotator cuff tendinosis. 2.Mild proximal biceps long head tendinosis. 3.Mild degeneration of the superior labrum without a labral tear. 4.Mild to moderate acromioclavicular joint osteoarthrosis. Reviewed by: Serjio Johnson MD on 09/23/2023 9:52 PM PST Approved by: Serjio Johnson MD on 09/23/2023 9:52 PM PST Station ID: [id number]
== END 2023-09-23 13:51 | disposition home or self-care (01) ==
LOC: DI 13:50
PROVIDERS: ATTEND Orthopaedic Surgery
DX: M75.111 Incomplete rotator cuff tear or rupture of right shoulder, not specified as traumatic (principal); M19.011 Primary osteoarthritis, right shoulder; M67.921 Unspecified disorder of synovium and tendon, right upper arm

== ENCOUNTER 2023-11-18 08:00 | Outpatient (CLI) | payer OTHER ==
[2023-11-18 18:28] LABS: BILIRUBIN,URINE NEGATIVE (NEGATIVE); GLUCOSE, URINE (UA) NEGATIVE (NEGATIVE); KETONES,URINE (UA) NEGATIVE (NEGATIVE); LEUKOCYTE ESTERASE, URINE SMALL (NEGATIVE); NITRITE,URINE NEGATIVE (NEGATIVE); OCCULT BLOOD,URINE NEGATIVE (NEGATIVE); PROTEIN,URINE NEGATIVE (NEGATIVE); UROBILINOGEN,URINE 0.2 (NORMAL) E.U./dL (NORMAL)
[2023-11-18 18:29] LABS: CLARITY,URINE CLEAR (CLEAR)
[2023-11-18 18:38] LABS: RBC,URINE 0-5 /HPF (0-5)
[2023-11-18 18:39] LABS: BACTERIA,URINE Rare /HPF (None Seen); SQUAMOUS EPITHELIAL CELL,UR FEW Squamous (<= Few)
== END 2023-11-18 23:59 | disposition home or self-care (01) ==
LOC: LAB.N 08:00
PROVIDERS: ATTEND Nurse Practitioner
DX: R30.0 Dysuria (principal)
CPT/HCPCS: 81001; 87086

== ENCOUNTER 2023-12-05 10:40 | Outpatient (CLI) | payer OTHER ==
--- NOTE | 2023-12-05 17:29 | Ultrasound Report ---
PROCEDURE: Abdomen Complete INDICATIONS: LUQ ABD PAIN TECHNIQUE: Real-time scanning was performed of the abdominal and retroperitoneal organs, with image documentatio n. COMPARISON: CT abdomen 04/01/2021 FINDINGS: Liver: Liver is normal in size and homogeneous in echotexture. Gallbladder: Removed. Biliary ducts: Intrahepatic bile ducts are non-dilated. Extrahepatic bile duct caliber measures 5 m m. Normal is 6-7 mm or less in diameter, or 10 mm or less post-cholecystectomy. Pancreas: Visualized portions of the pancreas are sonographically normal. Spleen: Spleen is normal in size and homogeneous in echotexture. Kidneys: Kidneys are normal in size and echotexture. Right kidney measures 8.4 cm long; left kidney measures 10.0 cm long. No hydronephrosis. Small echogenic foci are present in the left kidney measu ring 9 mm. No solid masses. No complex renal cystic lesions which require follow-up. Aorta: Visualized aorta is normal in caliber at less than 3 cm. Iliacs: Proximal common iliac arteries are normal in caliber at less than 2.5 cm. IVC: Intrahepatic inferior vena cava is patent. Miscellaneous: No free abdominal fluid. IMPRESSION: Cholecystectomy. Small echogenic foci within the left kidney suggestive of small stones. No obstruction. Reviewed by: Amisha Turcios MD on 12/05/2023 5:27 PM PDT Approved by: Amisha Turcios MD on 12/05/2023 5:27 PM PDT Station ID: [id number]
== END 2023-12-05 10:41 | disposition home or self-care (01) ==
LOC: DI 10:40
PROVIDERS: ATTEND Nurse Practitioner
DX: R10.12 Left upper quadrant pain (principal); R10.11 Right upper quadrant pain; Z90.49 Acquired absence of other specified parts of digestive tract
CPT/HCPCS: 36415; 80053; 82150; 83690; 85025

== ENCOUNTER 2023-12-05 10:50 | Outpatient (CLI) | payer OTHER ==
[2023-12-05 11:24] LABS: BASOPHILS % (AUTO) 0.4 %; EOSINOPHILS # (AUTO) 0.2 10^3/uL (0.0-0.7); EOSINOPHILS % (AUTO) 1.7 %; HCT - HEMATOCRIT 37.2 % (37.0-47.0); HGB - HEMOGLOBIN 11.5 g/dL (12.0-16.0); LYMPHOCYTES # (AUTO) 2.9 10^3/uL (1.5-3.5); LYMPHOCYTES % (AUTO) 32.5 %; MEAN CORPUSCULAR HGB CONC 30.9 g/dL (32.0-36.0); MEAN CORPUSCULAR VOLUME 97.1 fL (81.0-99.0); MONOCYTES # (AUTO) 0.5 10^3/uL (0.0-1.0); MONOCYTES % (AUTO) 5.5 %; NEUTROPHILS # (AUTO) 5.3 10^3/uL (1.5-6.6); PLT - PLATELET COUNT 334 10^3/uL (130-450); RED BLOOD COUNT 3.83 10^6/uL (4.20-5.40); RED CELL DISTRIBUTION WIDTH 13.6 % (12.0-15.0); WHITE BLOOD COUNT 8.9 x10^3/uL (4.8-10.8)
[2023-12-05 11:39] LABS: ALBUMIN 4.2 g/dL (3.2-5.5); ALBUMIN/GLOBULIN RATIO 1.6 (1.0-2.2); BILIRUBIN,TOTAL 0.4 mg/dL (0.2-1.0); CREATININE 0.9 mg/dL (0.6-1.3); POTASSIUM 3.6 mmol/L (3.5-4.5); TOTAL PROTEIN 6.9 g/dL (6.4-8.9)
== END 2023-12-05 10:51 | disposition home or self-care (01) ==
LOC: LAB 10:50
PROVIDERS: ATTEND Nurse Practitioner
DX: R10.12 Left upper quadrant pain (principal)
CPT/HCPCS: 36415; 80053; 82150; 83690; 85025

== ENCOUNTER 2024-01-12 08:00 | Outpatient (CLI) | payer OTHER | END 2024-01-12 23:59 | disposition home or self-care (01) | LOC: LAB 08:00 | PROVIDERS: ATTEND Urology | DX: N30.10 Interstitial cystitis (chronic) without hematuria (principal) | CPT/HCPCS: 87077; 87086; 87181 ==

== ENCOUNTER 2024-02-11 08:00 | Outpatient (CLI) | payer OTHER ==
[2024-02-11 16:18] LABS: BILIRUBIN,URINE NEGATIVE (NEGATIVE); GLUCOSE, URINE (UA) NEGATIVE (NEGATIVE); KETONES,URINE (UA) NEGATIVE (NEGATIVE); LEUKOCYTE ESTERASE, URINE MODERATE (NEGATIVE); NITRITE,URINE NEGATIVE (NEGATIVE); OCCULT BLOOD,URINE NEGATIVE (NEGATIVE); PROTEIN,URINE NEGATIVE (NEGATIVE); UROBILINOGEN,URINE 0.2 (NORMAL) E.U./dL (NORMAL)
[2024-02-11 16:35] LABS: BACTERIA,URINE Few /HPF (None Seen); CLARITY,URINE HAZY (CLEAR); RBC,URINE 0-5 /HPF (0-5); SQUAMOUS EPITHELIAL CELL,UR FEW Squamous (<= Few); WBC,URINE >25 /HPF (0-5)
== END 2024-02-11 23:59 | disposition home or self-care (01) ==
LOC: LAB 08:00
PROVIDERS: ATTEND Urology
DX: R30.0 Dysuria (principal)
CPT/HCPCS: 81001; 87086

== ENCOUNTER 2024-04-11 10:35 | Outpatient (CLI) | payer OTHER ==
--- NOTE | 2024-04-11 10:29 | CARDIAC PROCEDURE NOTE ---
Stress Test Report Service Date: 04/11/24 Service Time: 11:00 Ordering Provider: Richa Justice ARNP Indication for Test: Assess exertional dyspnea. Significant Medical History: Delores is referred for a treadmill stress echocardiogram today, to assess for a potential cardiac contribution to chronic intermittent dyspnea, that occurs primarily with exertion but also at rest. She reports that for many years she has used a variety of inhaled medications for what she thought was "asthma". However she recently underwent a thorough pulmonary evaluation with Dr Shelli Armas at [facility], results of which are not available to me. Per her understanding, pulmonary function testing did not show evidence of obstruction and she was non-reactive to inhaled bronchodilator. She was told that her shortness of breath is not of pulmonary origin. She reports a personal history of what appears to be unprovoked pulmonary emboli about 5 years ago, for which she was on anticoagulant therapy for several years until it was discontinued (details unknown). Her mother also had blood clots and it does not appear that Delores has had a workup for hypercoagulability. 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 Her exertional tolerance is limited by shortness of breath and while she endorses some chest tightness, she denies chest pain per se, as well as nausea and diaphoresis with exercise. Cardiac Risk Factors: Positive for hyperlipidemia (untreated, with most recent available values in 04/07 including TChol 218, LDLc 138, HDLc 46, TG 172); negative for hypertension, diabetes and recent tobacco smoking (quit >30 yrs ago). She cannot identify family members with coronary artery disease specifically, though her paternal grandfather experienced sudden cardiac in his 40s and her father has been treated for arrhythmia including atrial flutter; there was also concern for a clotting disorder in the patient's mother and herself, as discussed above. Type of Stress Test: ETT with Echocardiography Procedure: -Exercise Treadmill Test- After signing informed consent, the patient underwent echo imaging at rest and then performed treadmill exercise using a Deonte protocol. The patient exercised for 5 minutes 16 seconds and achieved a peak heart rate of 121 (72 percent predicted maximum heart rate for age), and an estimated workload of 7.1 METS. The test was terminated due to fatigue/shortness of breath. Resting heart rate: 83 Peak heart rate: 121 Normal response to exercise. Resting BP: 98/60 Peak BP: 112/50 (during exercise), increasing to 125/69 in Recovery Low resting BP with a response to exercise that was limited, though perhaps not frankly abnormal, especially considering that her HR response did not reach the diagnostic level. Room air oxygen saturation during exercise ranged between 95-97%. Rhythm during exercise: Sinus rhythm throughout, with only a single PVC noted. Symptoms: She reported experiencing her typical dyspnea and chest tightness, though denied chest discomfort. EKG at rest showed normal sinus rhythm with mild first-degree AV block (HO=806 ms) and low precordial lead QRS voltages. EKG at peak stress showed no ischemia by EKG criteria. In Recovery HR decreased towards the resting level, while blood pressure increa sed over the peak exercise level and remained elevated through 5 minutes of monitoring (HR 91, BP 125/59 at 5:00). Echo imaging, performed at rest and with stress, will be reported separately. IDerek MD, was present throughout this treadmill stress study and supervised it in its entirety. Summary: 1) Exercise tolerance was markedly reduced for age and sex as evidenced by DENISSE of 29%. 2) Normal resting EKG. 3) Adequate level of exercise was NOT achieved on this treadmill stress test, rendering the study non-diagnostic for ischemia due to inability to raise HR to more than 73% predicted maximal rate for age. Ischemia at a higher heart rate cannot be excluded. 4) Low resting BP with probable normal BP response to exercise. 5) Echo image interpretation reveals normal left ventricular size, wall thickness and systolic function, with appropriate hyperdynamic augmentation of all segments with exercise, indicating no evidence of prior infarct or inducible ischemia, at the limited heart rate achieved. No significant valvular abnormality or elevation of estimated pulmonary artery systolic pressure seen on screening study. See separate report for more details. Conclusions and Recommendations: 1) As discussed above, these treadmill stress echocardiogram results are not adequate to exclude ischemia as a contributor to the patient's symptoms, given her failure to reach target heart rate. Her resting blood pressure was low and probably increased normally, though it was higher in Recovery than at peak exercise, a finding of unclear significance. She recreated her typical symptoms of dyspnea and chest tightness, without clear evidence of ischemia at the heart rate achieved, by EKG or echo image analysis. 2) To further assess her for an ischemic contribution to her symptoms she should probably undergo a pharmacologic stress imaging study, either dobutamine stress echocardiogram or vasodilator stress radionuclide imaging, though with her possible lung disease the safety of Regadenason should be considered. 3) I am also concerned about the reported history of spontaneous blood clots in both the patient and her mother, without apparent prior hypercoagulability workup, so this should also be considered by her provider team.
== END 2024-04-11 10:36 | disposition home or self-care (01) ==
LOC: DI 10:35
PROVIDERS: ATTEND Nurse Practitioner
DX: R06.02 Shortness of breath (principal); E78.5 Hyperlipidemia, unspecified; Z87.891 Personal history of nicotine dependence; Z86.711 Personal history of pulmonary embolism
CPT/HCPCS: 93350

== ENCOUNTER 2024-05-09 08:00 | Outpatient (CLI) | payer OTHER | END 2024-05-09 08:01 | disposition home or self-care (01) | LOC: LAB 08:00 | PROVIDERS: ATTEND Urology | DX: N30.10 Interstitial cystitis (chronic) without hematuria (principal) | CPT/HCPCS: 87077; 87086 ==